=== PATIENT | female | born 1985 | race Caucasian/White ===

== ENCOUNTER 2022-12-17 18:14 | Inpatient (IN) | payer OTHER, SELFPAY ==
[2022-12-17] VITALS (26 sets, daily range): BP systolic 105–121; BP diastolic 66–74; PULSE 79–103; RESP 15–30; TEMP 36.9–37.6; O2SAT 96–100; BMI 28.4; BMI 29.0
--- NOTE | 2022-12-17 18:42 | ECG_ITS ---
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
--- NOTE | 2022-12-17 18:42 | XR_ITS ---
The [address] [address] Patient Name: MARIA E ORDOÑEZ MRN: [id number] date: 1985 Sex: F Assigned Patient Location: ER Current Patient Location: ER Accession/Order Number: [id number] Exam Date: 12/17/2022 19:20 Report Date: 12/17/2022 20:29 At the request of: EDWIGE RIVERA Procedure: XR chest 1V EXAM: XR chest 1V COMPARISON: None available. CLINICAL INDICATION: Cough. FINDINGS: The cardiomediastinal silhouette is within normal limits. No focal consolidation. No pleural effusion. No pneumothorax. XR/XR chest 1V IMPRESSION: No evidence of acute cardiopulmonary abnormality. Electronically authenticated by: ESTELLE GRANT Date: 12/17/2022 20:29
--- NOTE | 2022-12-17 18:45 | ED.GENADUL1 ---
HPI - General Adult General Chief complaint: Nausea/Vomiting/Diarrhea Stated complaint: FEVER, NAUSEA/VOMITING Time Seen by Provider: 12/17/22 18:35 Source: patient Mode of arrival: Wheelchair Limitations: no limitations History of Present Illness HPI narrative: Patient is a 37-year-old female who presents to the emergency department with her significant other for the evaluation of fever, nausea and vomiting for the last several days. She was seen in urgent care yesterday, no testing was performed and she was discharged home with Jessica. She states she continues to have generalized body aches, weakness, right heaving. She was able to hold down Tylenol at 4:33 PM today with no difficulty. She has been urinating normally. She is not concerned for . She has had nonproductive coughing with no other upper respiratory symptoms. Significant other reports temperatures as high as 100 and a half . She denies abdominal pain. She has chronic low back pain that is not worse or different. Related Data Home Medications Medication Instructions Recorded Confirmed lisinopril 10 mg tablet 10 mg PO DAILY 12/17/22 12/17/22 loperamide 2 mg capsule 2 mg PO DAILY 12/17/22 12/17/22 ondansetron 4 mg disintegrating 4 mg PO DAILY 12/17/22 12/17/22 tablet Allergies Allergy/AdvReac Type Severity Reaction Status Date / Time No Known Drug Allergies Allergy Verified 12/17/22 18:25 Review of Systems ROS Constitutional Reports: fever Ears, nose, mouth, and throat Denies: throat pain or neck pain Cardiovascular Denies: chest pain Respiratory Reports: cough; Denies: shortness of breath Gastrointestinal Reports: nausea and vomiting; Denies: abdominal pain or diarrhea Musculoskeletal Reports: back pain Integumentary/Breast Denies: rash Neurological Denies: headache [facility] Medical History (Updated 12/17/22 @ 22:22 by Rhina Stevens) Surgical History (Updated 12/17/22 @ 22:23 by Rhina Stevens) Social History (Updated 12/17/22 @ 22:27 by Rhina Stevens) Within the past year, how often did you have a drink containing alcohol: never Within the past year, how often did you have six or more drinks on one occasion: never Score interpretation: A score less than 3 is consistent with normal alcohol consumption. 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 Known occupational exposures/hazards: No Highest level of school completed/degree received: Bachelor's degree Do you want help with school or training: No Are you now , , , , never or living with a partner: In a typical week, how many times do you talk on the telephone with family, friends, or neighbors: 3 or more times per week How often do you get together with friends or relatives: 3 or more times per week How often do you attend presybeterian or lutheran services: 4 or more times per year Do you belong to any clubs or organizations such as presyb[employer]ian groups unions, [employer]lar[employer] or athletic groups, or school groups: yes Total score: 3 Score interpretation: A score of greater than or equal to 2 indicates the lowest level of social isolation. Little interest or pleasure in doing things: not at all Feeling down, depressed, or hopeless: not at all Feel stressed/tense/nervous/anxious/difficulty sleeping: not at all Life stressors: unknown source of stress Due to disability, difficulty making decisions: No Do you think of yourself as: straight/heterosexual Gender Identity: female Exam Narrative Exam Narrative: Gen.: Awake, alert, in no distress; patient appears well-hydrated and nontoxic Head: Normocephalic, atraumatic ENT: Moist mucous membranes Respiratory: No respiratory distress, lungs clear bilaterally Cardio: Regular rate and rhythm Gastrointestinal: Abdomen is soft, nondistended and nontender to palpation Extremities: Moves extremities equally Psych: Normal mood and affect Neuro: No focal neuro deficit Skin: Warm, dry, intact Constitutional Vital Signs, click to edit/add: Last Vital Signs Temp 101.2 F H 12/18/22 06:25 Pulse 115 H 12/18/22 06:00 Resp 20 12/18/22 04:14 BP 106/62 12/18/22 04:14 Pulse Ox 99 12/18/22 04:14 O2 Del Method Room Air 12/18/22 04:14 Course Vital Signs Vital signs: Vital Signs Temperature 98.4 F 12/17/22 18:18 Pulse Rate 103 H 12/17/22 18:18 Respiratory Rate 22 12/17/22 18:18 Blood Pressure 121/74 12/17/22 18:18 Pulse Oximetry 100 12/17/22 18:18 Oxygen Delivery Method Room Air 12/17/22 18:18 Temperature 101.2 F H 12/18/22 06:25 Pulse Rate 115 H 12/18/22 06:00 Respiratory Rate 20 12/18/22 04:14 Blood Pressure 106/62 12/18/22 04:14 Pulse Oximetry 99 12/18/22 04:14 Oxygen Delivery Method Room Air 12/18/22 04:14 Medical Decision Making MDM Narrative Medical decision making narrative: Patient treated with IV fluids, Toradol, Phenergan. She had no persistent emesis in the Emergency Room but feels generally weak and not significantly improved. She was found to have hyponatremia and hypokalemia and was able to tolerate oral potassium chloride. Chest x-ray with no evidence of acute abnormalities, strep and Covid test are negative. She does have leukocytosis, no bandemia but does have a urinary tract infection and stranding on the left kidney on her CT scan consistent with pyelonephritis. Patient will be kept overnight for IV antibiotics and fluids. She was given IV Cipro in the Emergency Room. Blood cultures are pending as the patient meet sepsis criteria due to white blood cell count, source of infection and initial tachycardia. Vital signs have improved at this time. She does still have tachypnea at time of admission. She was reevaluated prior to admission and is agreeable to being admitted overnight, stable at this time. Discussed with Dr. Zhu ([id number]) for admission Medical Records Medical records reviewed: Yes I reviewed the patient's medical records Lab Data Lab results reviewed: Yes I reviewed the patient's lab results Labs: Lab Results 12/17/22 12/17/22 12/17/22 Range/Units 18:30 19:10 20:11 WBC 21.9 H (4.0-11.0) 10^3/uL RBC 4.41 (4.20-5.40) 10^6/uL Hgb 12.2 (12.0-16.0) g/dL Hct 36.8 (36.0-48.0) % MCV 83.4 (81.0-99.0) fL MCH 27.7 (26.7-34.0) pg MCHC 33.2 (29.9-35.2) g/dL RDW 13.2 (11.0-15.0) % Plt Count 364 (150-450) 10^3/uL MPV 9.9 (9.5-13.5) fL Seg Neuts % (Manual) 84.0 Lymphocytes % (Manual) 5.0 L (20.5-60.0) % Atypical Lymphs % (Man) 1.0 % Monocytes % (Manual) 10.0 (1.7-12.0) % Eosinophils % (Manual) 0.0 L (0.9-7.0) % Basophils % (Manual) 0.0 L (0.2-2.0) % Neutrophils # (Manual) 18.39 H (1.4-6.5) 10^3/uL Lymphocytes # (Manual) 1.09 L (1.20-3.80) 10^3/uL Abs Atypical Lymphs Man 0.2 Monocytes # (Manual) 2.19 H (0.30-0.80) 10^3/uL Eosinophils # (Manual) 0.00 (0.00-0.70) 10^3/uL Basophils # (Manual) 0.00 (0.00-0.10) 10^3/uL Sodium 130 L (136-145) mmol/L Potassium 3.0 L (3.5-5.1) mmol/L Chloride 94 L (98-107) mmol/L Carbon Dioxide 21.2 (21.0-32.0) mmol/L Anion Gap 17.8 BUN 12.0 (7.0-18.0) mg/dL Creatinine 1.50 H (0.55-1.02) mg/dL Est GFR ( Amer) 48 L (>=60) Est GFR (Non-Af Amer) 40 L (>=60) BUN/Creatinine Ratio 8.0 Glucose 147 H (74-106) mg/dL Lactate 1.9 (0.4-2.0) mmol/L Calcium 8.6 (8.5-10.1) mg/dL Total Bilirubin 0.8 (0.2-1.0) mg/dL AST 15 (15-37) U/L ALT 26 (14-59) U/L Alkaline Phosphatase 81 (46-116) U/L Total Protein 7.8 (6.4-8.2) g/dL Albumin 3.2 L (3.4-5.0) g/dL Globulin 4.6 g/dL Albumin/Globulin Ratio 0.7 Serum HCG, Qual Negative (NEGATIVE) Urine Color Lt. yellow (YELLOW) Urine Clarity Clear (CLEAR) Urine pH 5.5 (5.0-9.0) Ur Specific [place] 1.015 (1.005-1.025) Urine Protein 30 A (NEG/TRACE) mg/dL Urine Glucose (UA) Negative (NEGATIVE) mg/dL Urine Ketones Negative (NEGATIVE) mg/dL Urine Occult Blood Moderate A (NEGATIVE) Urine Nitrite Negative (NEGATIVE) Urine Bilirubin Negative (NEGATIVE) Urine Urobilinogen 1.0 (0.2-1.0) EU/dL Ur Leukocyte Esterase Moderate A (NEGATIVE) Urine RBC 5-10 A (0-2) #/HPF Urine WBC 10-20 A (NONE SEEN) #/HPF Ur Squamous Epith Cells Few A (NONE/RARE) #/LPF Urine Crystals None seen (None Seen) #/HPF Urine Bacteria Large A (NONE SEEN) #/HPF Urine Casts None seen (NONE SEEN) #/LPF Urine Mucus None seen (NONE SEEN) Ur Culture Indicated? Yes SARS-CoV-2 (PCR) Negative (NEGATIVE) Streptococcus Screen Negative Imaging Data CT scan - abdomen: Attestation: I have reviewed the pertinent imaging results. Radiologist's impression: Procedure: CT abdomen pelvis wo con EXAM: CT abdomen pelvis wo con Comparison: None available. CLINICAL INDICATION: Fever, nausea and vomiting, concern for kidney stone. TECHNIQUE: Axial images through the abdomen and pelvis were obtained without intravenous contrast. Coronal and sagittal reconstructions were obtained. Dose reduction techniques were achieved by using automated exposure control and/or adjustment of mA and/or kV according to patient size and/or use of iterative reconstruction technique. FINDINGS: Please note that evaluation of the viscera/vascular structures, and sensitivity for detection of focal lesions, is limited without intravenous contrast. LOWER CHEST: The visualized portions of the lung bases are clear. LIVER: Hepatic steatosis. Liver measures up to 19 cm. GALLBLADDER: Unremarkable. BILE DUCTS: Unremarkable. PANCREAS: Unremarkable. SPLEEN: Unremarkable. ADRENALS: Unremarkable. 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 No ureteral stones seen at this time. There is mild left hydroureteronephrosis, as well as left perinephric-periureteral stranding, raising suspicion for a recently passed left kidney stone or pyelonephritis on the left. BLADDER: No bladder stones seen at this time. No bladder wall thickening. PELVIC STRUCTURES: Uterus is present. Bilateral tubal ligation clips. No adnexal mass or significant pelvic free fluid. GI TRACT: Evaluation of bowel limited by fecal contents and lack of distention. No evidence of bowel obstruction. Normal appendix. VASCULAR STRUCTURES: Unremarkable. LYMPH NODES: No pathologic lymphadenopathy by CT size criteria. PERITONEUM: No free air. No abscess. SOFT TISSUES: Unremarkable. OSSEOUS STRUCTURES: No acute osseous abnormality. No suspicious osseous lesions. 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 No ureteral stones seen at this time. There is mild left hydroureteronephrosis, as well as left perinephric-periureteral stranding, raising suspicion for a recently passed left kidney stone or pyelonephritis on the left. Electronically authenticated by: ESTELLE GRANT Date: 12/17/2022 20:34 Chest x-ray: Attestation: I have reviewed the pertinent imaging results. Radiologist's impression: Procedure: XR chest 1V EXAM: XR chest 1V COMPARISON: None available. CLINICAL INDICATION: Cough. FINDINGS: The cardiomediastinal silhouette is within normal limits. No focal consolidation. No pleural effusion. No pneumothorax. IMPRESSION: No evidence of acute cardiopulmonary abnormality. Electronically authenticated by: ESTELLE GRANT Date: 12/17/2022 20:29 ECG Data Attestation: I personally reviewed and interpreted this ECG as follows: (Normal sinus rhythm at a rate of ninety-eight, no acute ST elevation or ectopy. Minimal ST depression noted. EKG reviewed by attending physician) Discharge Plan Discharge Chief Complaint: Nausea/Vomiting/Diarrhea Clinical Impression: Pyelonephritis, Sepsis, Nausea & vomiting Patient Disposition: Admitted as Observation Time of Disposition Decision: 20:45 Condition: Good Discharge Date/Time: 12/17/22 21:37
[2022-12-17 18:57] LABS: Hematocrit 36.8 % (36.0-48.0); Hemoglobin 12.2 g/dL (12.0-16.0); Mean Corpuscular HGB Conc 33.2 g/dL (29.9-35.2); Mean Corpuscular Hemoglobin 27.7 pg (26.7-34.0); Mean Corpuscular Volume 83.4 fL (81.0-99.0); Mean Platelet Volume 9.9 fL (9.5-13.5); Platelet Count 364 10^3/uL (150-450); Red Blood Count 4.41 10^6/uL (4.20-5.40); Red Cell Distribution Width 13.2 % (11.0-15.0); White Blood Count 21.9 10^3/uL (4.0-11.0)
[2022-12-17] MEDS: KETOROLAC TROMETHAMINE 30 MG/ML VIAL IVP (18:57)
[2022-12-17] MEDS: PROMETHAZINE HCL 25 MG/ML VIAL 12.5 MG IV (18:57)
[2022-12-17] MEDS: 0.9 % SODIUM CHLORIDE 1,000 ML 999 ML IV (18:58)
[2022-12-17] MEDS: FAMOTIDINE/PF 20 MG/2 ML VIAL IV (18:58)
--- NOTE | 2022-12-17 19:02 | CT_ITS ---
The [address] [address] Patient Name: MARIA E ORDOÑEZ MRN: [id number] date: 1985 Sex: F Assigned Patient Location: ER Current Patient Location: Accession/Order Number: [id number] Exam Date: 12/17/2022 19:35 Report Date: 12/17/2022 20:34 At the request of: EDWIGE RIVERA Procedure: CT abdomen pelvis wo con EXAM: CT abdomen pelvis wo con Comparison: None available. CLINICAL INDICATION: Fever, nausea and vomiting, concern for kidney stone. TECHNIQUE: Axial images through the abdomen and pelvis were obtained without intravenous contrast. Coronal and sagittal reconstructions were obtained. Dose reduction techniques were achieved by using automated exposure control and/or adjustment of mA and/or kV according to patient size and/or use of iterative reconstruction technique. FINDINGS: Please note that evaluation of the viscera/vascular structures, and sensitivity for detection of focal lesions, is limited without intravenous contrast. LOWER CHEST: The visualized portions of the lung bases are clear. LIVER: Hepatic steatosis. Liver measures up to 19 cm. GALLBLADDER: Unremarkable. BILE DUCTS: Unremarkable. PANCREAS: Unremarkable. SPLEEN: Unremarkable. ADRENALS: Unremarkable. 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 No ureteral stones seen at this time. There is mild left hydroureteronephrosis, as well as left perinephric-periureteral stranding, raising suspicion for a recently passed left kidney stone or pyelonephritis on the left. BLADDER: No bladder stones seen at this time. No bladder wall thickening. PELVIC STRUCTURES: Uterus is present. Bilateral tubal ligation clips. No adnexal mass or significant pelvic free fluid. GI TRACT: Evaluation of bowel limited by fecal contents and lack of distention. No evidence of bowel obstruction. Normal appendix. VASCULAR STRUCTURES: Unremarkable. LYMPH NODES: No pathologic lymphadenopathy by CT size criteria. PERITONEUM: No free air. No abscess. SOFT TISSUES: Unremarkable. OSSEOUS STRUCTURES: No acute osseous abnormality. No suspicious osseous lesions. 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 No ureteral stones seen at this time. There is mild left hydroureteronephrosis, as well as left perinephric-periureteral stranding, raising suspicion for a recently passed left kidney stone or pyelonephritis on the left. Electronically authenticated by: ESTELLE GRANT Date: 12/17/2022 20:34
[2022-12-17 19:10] LABS: HCG Qualitative NEGATIVE (NEGATIVE)
--- NOTE | 2022-12-17 19:14 | PC.NURSE ---
covid swab and strept swab obtained at this time. pt denies any other needs,.
[2022-12-17 19:17] LABS: Atypical Lymphocytes Abs Man 0.2; Lactate/Lactic Acid 1.9 mmol/L (0.4-2.0); Lymphocytes Absolute Manual 1.09 10^3/uL (1.20-3.80); Monocytes Absolute Manual 2.19 10^3/uL (0.30-0.80); Segmented Neut Absolute Manual 18.39 10^3/uL (1.4-6.5)
[2022-12-17 19:24] LABS: Alanine Aminotransferase 26 U/L (14-59); Albumin Globulin Ratio 0.7; Albumin Level 3.2 g/dL (3.4-5.0); Alkaline Phosphatase 81 U/L (46-116); Anion Gap 17.8; Aspartate Amino Transferase 15 U/L (15-37); Bilirubin Total 0.8 mg/dL (0.2-1.0); Calcium 8.6 mg/dL (8.5-10.1); Carbon Dioxide 21.2 mmol/L (21.0-32.0); Chloride 94 mmol/L (98-107); Estimated GFR (African America 48 (>=60); Estimated GFR (Non-African Ame 40 (>=60); Globulin 4.6 g/dL; Glucose 147 mg/dL (74-106); Sodium 130 mmol/L (136-145); Total Protein 7.8 g/dL (6.4-8.2)
[2022-12-17 19:45] LABS: Internal Control Within Normal Limits; Strep A Antigen Screen Negative
[2022-12-17 19:47] LABS: SARS-CoV-2 Ag NEGATIVE (NEGATIVE)
[2022-12-17] MEDS: POTASSIUM CHLORIDE 10 MEQ ER TABLET 40 MEQ PO (20:05)
[2022-12-17 20:18] LABS: Bilirubin Urine NEGATIVE (NEGATIVE); Blood Urine MODERATE (NEGATIVE); Clarity Urine CLEAR (CLEAR); Color Urine LT. YELLOW (YELLOW); Glucose Urine UA NEGATIVE (NEGATIVE); Ketones Urine NEGATIVE (NEGATIVE); Leukocyte Esterase Urine MODERATE (NEGATIVE); Nitrite Urine NEGATIVE (NEGATIVE); Protein Urine 30 mg/dL (NEG/TRACE); Specific Gravity Urine 1.015 (1.005-1.025); pH Urine 5.5 (5.0-9.0)
[2022-12-17 20:19] LABS: Urine Microscopic Indicated YES
[2022-12-17 20:25] LABS: Bacteria Urine LARGE #/HPF (NONE SEEN); Mucus Urine NONE SEEN (NONE SEEN)
[2022-12-17 20:26] LABS: Cast Seen? NONE SEEN #/LPF (NONE SEEN); Crystals Seen? None Seen #/HPF (None Seen); Squamous Epithelial Cell Urine FEW #/LPF (NONE/RARE); Urine Culture Indicated YES
[2022-12-17] MEDS: LEVOFLOXACIN IN DEXTROSE 5 % 750 MG/150 ML IV.SOLN 150 MG IV (21:00)
--- NOTE | 2022-12-17 23:15 | P.PN_ITS ---
Progress Note: Subjective Subjective Interval history: Pt is a 37F with PMH of Nephrolithiasis, Pyelonephritis, HTN who presents to the ED with complaint of 3--4 days of nausea/vomiting, Fever of 101 at home, Back pain L>R - 7/10 in severity, sharp, nonradiating, constant. Relieved with heating pad and hot shower, exacerbated with movement and plapation. She was evaluated in the urgent care yesterday and was provided with Zofran SL but she continued to vomit and have fevers. She took tyelnol prior to arrival. In the ED, she was noted to be tachycardic with a WBC count of 22. She was found to have a positive UA and CT Ab/Pel showed perinephric stranding. She received LEvaquin, IV Fluid, Toradol and Phenergan in the ED. IM is consulted for admission of pyelonephiritis. At the time of my exam, pt continues to complain of nausea, vomiting, and back pain. Exam Narrative Exam Narrative: General: Pt lying in hospital bed. Nurse at bedside. Pt appears well whilst lying still, and in moderate pain with movement HEENT: No nasal discharge. PEERL Neck: FROM Cardio: +Tachycardia, no murmur Pulm: CTA B/L . No wheezes Abd: Hyperactive bowel sounds, nondistneded, nontender Musculoskeletal: No edema. +L CVA tenderness Neuro: AAOx 4 Psych: Calm, cooperative Constitutional Vital Signs, click to edit/add: Last Vital Signs Temp 99.3 F 12/17/22 22:15 Pulse 81 12/17/22 22:15 Resp 24 12/17/22 22:15 BP 105/74 12/17/22 22:15 Pulse Ox 99 12/17/22 22:15 O2 Del Method Room Air 12/17/22 22:15 Progress Note: Objective Labs Labs: Short CBC 12/17/22 Range/Units 18:30 WBC 21.9 H (4.0-11.0) 10^3/uL Hgb 12.2 (12.0-16.0) g/dL Hct 36.8 (36.0-48.0) % Plt Count 364 (150-450) 10^3/uL BMP 12/17/22 18:30 Sodium 130 L Potassium 3.0 L Chloride 94 L Carbon Dioxide 21.2 BUN 12.0 Creatinine 1.50 H Glucose 147 H Calcium 8.6 Liver Function 12/17/22 Range/Units 18:30 Total Bilirubin 0.8 (0.2-1.0) mg/dL AST 15 (15-37) U/L ALT 26 (14-59) U/L Alkaline Phosphatase 81 (46-116) U/L Albumin 3.2 L (3.4-5.0) g/dL Urine 12/17/22 Range/Units 20:11 Urine Color Lt. yellow (YELLOW) Urine Clarity Clear (CLEAR) Urine pH 5.5 (5.0-9.0) Ur Specific [place] 1.015 (1.005-1.025) Urine Protein 30 A (NEG/TRACE) mg/dL Urine Glucose (UA) Negative (NEGATIVE) mg/dL Progress Note: A&P Assessment and Plan (1) Sepsis: Assessment and Plan: Tachycardia, WBC 22, suspected source pyelonephritis Pt received IV FLuid and Levaquin in the ED Continue IV NS at 150cc/hr Rocephin 2g Q24h Follow up urine and blood cultures (2) Pyelonephritis: Assessment and Plan: Pt with L CVA tenderness UA positive Hx of Pyelo, stones No obstructing stones seen on CT Follow up urine culture, blood cultures Continue IVF and Abx as above Monitor response (3) Nausea & vomiting: Assessment and Plan: Pt has received Zofran and Phenergan with no improvement Add ativan 1mg PRN nausea Monitor response Plan As above Telemedicine Attestation Telemedicine Attestation I conducted this encounter from [[place]] via secure live, [id number] video conference with the patient, located at [facility] with [nurse]. Prior to the interview, the risks and benefits of telemedicine were discussed with the patient and verbal consent was obtained.
[2022-12-17] MEDS: HEPARIN SODIUM (PORCINE) 5,000 UNIT/ML VIAL 5000 UNIT SUBQ (23:54)
[2022-12-17] MEDS: LORAZEPAM 2 MG/ML 1 ML VIAL 1 MG IV (23:55)
[2022-12-17] MEDS: 0.9 % SODIUM CHLORIDE 1,000 ML 150 ML IV (23:55)
[2022-12-18] VITALS (18 sets, daily range): BP systolic 100–106; BP diastolic 62–69; PULSE 81–122; RESP 16–20; TEMP 36.9–38.4; O2SAT 95–99; BMI 29.0
--- NOTE | 2022-12-18 01:43 | PC.NURSE ---
patient's stool liquid light green
[2022-12-18 04:55] LABS: Basophils Absolute Auto 0.1 10^3/uL (0.0-0.1); Basophils Percent Auto 0.3 % (0.2-2.0); Eosinophils Percent Auto 0.1 % (0.9-7.0); Hematocrit 37.5 % (36.0-48.0); Hemoglobin 12.3 g/dL (12.0-16.0); Immature Granulocytes Abs Auto 0.13 10^3/uL (0.00-0.03); Immature Granulocytes Pct Auto 0.7 % (0.0-0.5); Lymphocytes Absolute Auto 2.1 10^3/uL (1.2-3.8); Lymphocytes Percent Auto 11.6 % (20.5-60.0); Mean Corpuscular HGB Conc 32.8 g/dL (29.9-35.2); Mean Corpuscular Volume 85.2 fL (81.0-99.0); Mean Platelet Volume 10.6 fL (9.5-13.5); Monocytes Absolute Auto 2.1 10^3/uL (0.3-0.8); Monocytes Percent Auto 11.4 % (1.7-12.0); Neutrophils Percent Auto 75.9 % (43.0-75.0); Platelet Count 326 10^3/uL (150-450); Red Cell Distribution Width 13.4 % (11.0-15.0); White Blood Count 18.4 10^3/uL (4.0-11.0)
[2022-12-18 05:14] LABS: Anion Gap 16.1; BUN Creatinine Ratio 9.9; Calcium 8.2 mg/dL (8.5-10.1); Carbon Dioxide 21.7 mmol/L (21.0-32.0); Chloride 96 mmol/L (98-107); Estimated GFR (African America 51 (>=60); Estimated GFR (Non-African Ame 42 (>=60); Glucose 94 mg/dL (74-106); Magnesium 1.8 mg/dL (1.8-2.4); Potassium 3.8 mmol/L (3.5-5.1); Sodium 130 mmol/L (136-145)
[2022-12-18] MEDS: 0.9 % SODIUM CHLORIDE 1,000 ML 150 ML IV (05:35)
[2022-12-18] MEDS: CEFTRIAXONE 2,000 MG in 0.9 % SODIUM CHLORIDE 100 ML 200 MG IV (08:22)
--- NOTE | 2022-12-18 10:44 | DIETREC ---
Recommend Ensure high protein 1 container po daily
--- NOTE | 2022-12-18 10:48 | CM.NOTE ---
Rounds made with Dr. Fernández, pt continues with fevers. No discharge to home today. No discharge needs identified with pt.
--- NOTE | 2022-12-18 12:04 | PM.HP ---
H&P: HPI History of Present Illness Chief complaint: Fever/nausea Narrative: 37 y o female with hx of recurrent kidney stones in the past, was in her usual state of health on past Friday when she suddenly started to experience intense nausea, followed by intractable vomiting with inability to keep anything down along with anorexia. She also reports tmax 102 at home and reports chills and profuse sweating with fever. She denies dysuria, urgency, hesitancy or any urinary complaints. She experienced diarrhea 2-3 episodes of day 1 of when he symptoms started. She also reports feeling malaise, fatigue and generalized bodyaches. She denies abdominal pain, CVA tenderness, passing kidney stones. Pt was evaluated in urgent care on Friday and was told that she probably has gastroenteritis and it will get better in sometime on its own with supportive care. However, when she continued to experience worsening symptoms, recurrent fever, she came to ED last night for further evaluation. Patient's ED is c/w Severe sepsis sec to Pyelonephritis. This morning on my evaluation, she reports feeling much better than last night. Still febrile and reports feeling weak, tired with mild nausea. Denies diarrhea and vomiting and was able to tolerate PO intake. Review of Systems ROS Status of ROS 10 or more systems reviewed and unremarkable except as noted in history and below [facility] Medical History (Updated 12/18/22 @ 12:17 by Shaikh Jolene MD) Surgical History (Updated 12/17/22 @ 22:23 by Rhina Stevens) Social History (Updated 12/17/22 @ 22:27 by Rhina Stevens) Within the past year, how often did you have a drink containing alcohol: never Within the past year, how often did you have six or more drinks on one occasion: never Score interpretation: A score less than 3 is consistent with normal alcohol consumption. 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 Known occupational exposures/hazards: No Highest level of school completed/degree received: Bachelor's degree Do you want help with school or training: No Are you now , , , , never or living with a partner: In a typical week, how many times do you talk on the telephone with family, friends, or neighbors: 3 or more times per week How often do you get together with friends or relatives: 3 or more times per week How often do you attend worship or confucianist services: 4 or more times per year Do you belong to any clubs or organizations such as worship groups unions, fraternal or athletic groups, or school groups: yes Total score: 3 Score interpretation: A score of greater than or equal to 2 indicates the lowest level of social isolation. Little interest or pleasure in doing things: not at all Feeling down, depressed, or hopeless: not at all Feel stressed/tense/nervous/anxious/difficulty sleeping: not at all Life stressors: unknown source of stress Due to disability, difficulty making decisions: No Do you think of yourself as: straight/heterosexual Gender Identity: female Meds Home Medications and Allergies Home Medications Medication Instructions Recorded Confirmed Type lisinopril 10 mg tablet 10 mg PO DAILY 12/17/22 12/17/22 History loperamide 2 mg capsule 2 mg PO DAILY 12/17/22 12/18/22 History ondansetron 4 mg disintegrating 4 mg PO DAILY 12/17/22 12/18/22 History tablet Allergies Allergy/AdvReac Type Severity Reaction Status Date / Time No Known Drug Allergies Allergy Verified 12/17/22 18:25 Exam Constitutional Vital Signs, click to edit/add: Last Vital Signs Temp 101.2 F H 12/18/22 06:25 Pulse 87 12/18/22 11:51 Resp 20 12/18/22 04:14 BP 106/62 12/18/22 04:14 Pulse Ox 98 12/18/22 11:07 O2 Del Method Room Air 12/18/22 11:07 Documenting provider has reviewed patient's vital signs: yes Common normals: no apparent distress and oriented x3 General appearance: cooperative and comfortable [facility] Common normals: normocephalic and head/scalp atraumatic Head and scalp: normocephalic and atraumatic Eye Common normals: conjunctivae normal and no scleral icterus Conjunctiva: conjunctiva(e) normal Respiratory Common normals: normal respiratory effort and clear to auscultation bilaterally Effort & inspection: able to speak in complete sentences Auscultation: clear to auscultation bilaterally Cardio Common normals: regular rate, S1 normal heart sound and S2 normal heart sound Rate: regular rate Heart sounds: S1 normal and S2 normal GI Common normals: Normal to inspection, nondistended, normoactive bowel sounds present, soft to palpation, non-tender and no hepatosplenomegaly Palpation: soft and no hepatosplenomegaly Extremity Common normals: no clubbing, cyanosis or edema Neuro Common normals: oriented x3, moves all extremities and no focal motor deficits Psych Common normals: mental status grossly normal, denies hallucinations, denies homicidal ideation and denies suicidal ideation Results Labs Labs: Short CBC 12/17/22 12/18/22 Range/Units 18:30 04:12 WBC 21.9 H 18.4 H (4.0-11.0) 10^3/uL Hgb 12.2 12.3 (12.0-16.0) g/dL Hct 36.8 37.5 (36.0-48.0) % Plt Count 364 326 (150-450) 10^3/uL BMP 12/17/22 12/18/22 18:30 04:12 Sodium 130 L 130 L Potassium 3.0 L 3.8 Chloride 94 L 96 L Carbon Dioxide 21.2 21.7 BUN 12.0 14.0 Creatinine 1.50 H 1.41 H Glucose 147 H 94 Calcium 8.6 8.2 L Liver Function 12/17/22 Range/Units 18:30 Total Bilirubin 0.8 (0.2-1.0) mg/dL AST 15 (15-37) U/L ALT 26 (14-59) U/L Alkaline Phosphatase 81 (46-116) U/L Albumin 3.2 L (3.4-5.0) g/dL Urine 12/17/22 Range/Units 20:11 Urine Color Lt. yellow (YELLOW) Urine Clarity Clear (CLEAR) Urine pH 5.5 (5.0-9.0) Ur Specific [place] 1.015 (1.005-1.025) Urine Protein 30 A (NEG/TRACE) mg/dL Urine Glucose (UA) Negative (NEGATIVE) mg/dL Assessment and Plan Assessment and Plan (1) Sepsis: Assessment and Plan: WBC > 21k, temp 102 with KOFI Meets criteria for sepsis. Improved hemodynamics. C/w IVF - reduce rate to 100 ml/hr IV rocephin for UTI. F/u blood and urine cx. Closely monitor, as still febrile. Qualifiers: Sepsis type: sepsis due to unspecified organism Sepsis acute organ dysfunction status: with acute organ dysfunction Severe sepsis acute organ dysfunction type: acute renal failure Acute renal failure type: unspecified (2) HTN (hypertension): Assessment and Plan: Hold lisinopril as p/w sepsis and KOFI Resume once KOFI resolves Monitor BP closely. (3) Pyelonephritis of left kidney: Assessment and Plan: Due to and associated with renal/ureteral calculi Suspect recently passed ureteral stone that resulted/caused pyelonephritis and mild hydroureteronephrosis. C/w IV rocephin, f/u urine and blood cx. (4) Hydroureteronephrosis: Assessment and Plan: Left sided, mild, no ureteral stone visualized on CT. Likely passed it recently. Monitor. (5) KOFI (acute kidney injury): Assessment and Plan: Combination of pre renal and possibly obstructive uropathy due to ureteral stone (now passed with no obs noted on CT) Normal baseline Cr C/w IV hydration, monitor UO, Cr Hold lisinopril/NSAIDS. (6) Hyponatremia: Assessment and Plan: Likely due to dehydration/sepsis. Follow up and monitor. Sodium of 130 on presentation (7) Multiple renal calculi: Assessment and Plan: Multiple stones in renal parenchyma. No evidence of current ureteral stones or obstruction Plan Meets inpatient status due to severe sepsis, pyelonephritis, organ dysfunction and needs continued monitoring/IV abx and IV fluids for Pyelonephritis/KOFI
[2022-12-18] MEDS: LACTATED RINGER'S SOLUTION 1,000 ML 125 ML IV ×2 (12:26→20:56)
--- NOTE | 2022-12-18 13:05 | NUTR.NU ---
Provided nutrition information: [facility]: to prevent kidney stones & NIH Eating; Diet Nutrition for kidney stones
[2022-12-18] MEDS: ENOXAPARIN SODIUM 30 MG/0.3 ML SYRINGE SUBQ (14:00)
[2022-12-18] MEDS: ACETAMINOPHEN 325 MG TABLET 650 MG PO (17:02)
[2022-12-19] VITALS (9 sets, daily range): BP systolic 113; BP diastolic 74; PULSE 89–110; RESP 16; TEMP 37.2; O2SAT 95–96
[2022-12-19 04:45] LABS: Basophils Percent Auto 0.4 % (0.2-2.0); Eosinophils Absolute Auto 0.1 10^3/uL (0.0-0.7); Eosinophils Percent Auto 0.5 % (0.9-7.0); Hematocrit 30.4 % (36.0-48.0); Hemoglobin 10.1 g/dL (12.0-16.0); Immature Granulocytes Abs Auto 0.07 10^3/uL (0.00-0.03); Immature Granulocytes Pct Auto 0.6 % (0.0-0.5); Lymphocytes Absolute Auto 2.1 10^3/uL (1.2-3.8); Lymphocytes Percent Auto 18.7 % (20.5-60.0); Mean Corpuscular HGB Conc 33.2 g/dL (29.9-35.2); Mean Corpuscular Volume 84.2 fL (81.0-99.0); Mean Platelet Volume 10.2 fL (9.5-13.5); Monocytes Absolute Auto 1.3 10^3/uL (0.3-0.8); Monocytes Percent Auto 11.6 % (1.7-12.0); Neutrophils Absolute Auto 7.7 10^3/uL (1.4-6.5); Neutrophils Percent Auto 68.2 % (43.0-75.0); Platelet Count 366 10^3/uL (150-450); Red Blood Count 3.61 10^6/uL (4.20-5.40); Red Cell Distribution Width 13.8 % (11.0-15.0); White Blood Count 11.3 10^3/uL (4.0-11.0)
[2022-12-19] MEDS: LACTATED RINGER'S SOLUTION 1,000 ML 125 ML IV (04:59)
[2022-12-19 05:02] LABS: Alanine Aminotransferase 20 U/L (14-59); Albumin Globulin Ratio 0.5; Albumin Level 2.2 g/dL (3.4-5.0); Alkaline Phosphatase 64 U/L (46-116); Aspartate Amino Transferase 12 U/L (15-37); BUN Creatinine Ratio 6.4; Bilirubin Total 0.3 mg/dL (0.2-1.0); Carbon Dioxide 23.6 mmol/L (21.0-32.0); Chloride 105 mmol/L (98-107); Estimated GFR (African America >60 (>=60); Estimated GFR (Non-African Ame >60 (>=60); Globulin 4.3 g/dL; Glucose 103 mg/dL (74-106); Potassium 3.6 mmol/L (3.5-5.1); Sodium 138 mmol/L (136-145); Total Protein 6.5 g/dL (6.4-8.2)
[2022-12-19] MEDS: CEFTRIAXONE 1,000 MG in 0.9 % SODIUM CHLORIDE 50 ML 100 MG IV (08:22)
--- NOTE | 2022-12-19 11:13 | CM.NOTE ---
Rounds made with giovanni Harrison for discharge to home today. No discharge needs identified.
--- NOTE | 2022-12-19 11:29 | PM.DS1 ---
DS: Providers Provider Date of admission: 12/17/22 23:25 Primary care physician: Non-Staff Physician, Attending physician on discharge: Shaikh Jolene Discharging clinician: Shaikh Jolene Anticipated date of discharge: 12/19/22 DS: Diagnosis Discharge Diagnosis (1) Sepsis: Assessment and plan: Resolved. Due to pyelonephritis Qualifiers: Acute renal failure type: unspecified Sepsis acute organ dysfunction status: with acute organ dysfunction Sepsis type: sepsis due to unspecified organism Severe sepsis acute organ dysfunction type: acute renal failure (2) HTN (hypertension): Assessment and plan: Resume Lisinopril as outpatient. (3) Pyelonephritis of left kidney: Assessment and plan: Left sided pyelonephritis - will d/c on oral ceftin (4) Hydroureteronephrosis: Assessment and plan: Only mild case. Likely from recently passed stone (5) KOFI (acute kidney injury): Assessment and plan: Resolved. due to sepsis and dehydration (6) Hyponatremia: Assessment and plan: due to dehydration, resolved. (7) Multiple renal calculi: Assessment and plan: in renal parenchyma with no evidence of obs on CT. DS: Summary Hospital Course Hospital Course: 7 y o female with hx of recurrent kidney stones in the past presented with intractable nausea, vomiting and was admitted for sepsis sec to left pyelonephritis. She was treated with IV fluids along with Rocephin for it. She continued to improve clinically and is doing well today with no complaints to offer. Patient stable for d/c on oral Ceftin Educated on worrisome signs and symptoms that should prompt her to seek urgent care. Status at Discharge Functional status at discharge: independent ambulation Overall status at discharge: patient is back to baseline Time Spent with Patient Time attestation: Total time spent providing and/or coordinating discharge services: Time spent: greater than 30 minutes Exam Constitutional Vital Signs, click to edit/add: Last Vital Signs Temp 99.0 F 12/19/22 04:11 Pulse 89 12/19/22 09:47 Resp 16 12/19/22 04:11 BP 113/74 12/19/22 04:11 Pulse Ox 95 12/19/22 08:13 O2 Del Method Room Air 12/19/22 08:13 Documenting provider has reviewed patient's vital signs: yes Common normals: no apparent distress and oriented x3 General appearance: cooperative and comfortable [facility] Common normals: normocephalic and head/scalp atraumatic Head and scalp: normocephalic and atraumatic Eye Common normals: conjunctivae normal and no scleral icterus Conjunctiva: conjunctiva(e) normal Respiratory Common normals: normal respiratory effort and clear to auscultation bilaterally Effort & inspection: able to speak in complete sentences Auscultation: clear to auscultation bilaterally Cardio Common normals: regular rate, S1 normal heart sound and S2 normal heart sound Rate: regular rate Heart sounds: S1 normal and S2 normal GI Common normals: Normal to inspection, nondistended, normoactive bowel sounds present, soft to palpation, non-tender and no hepatosplenomegaly Palpation: soft and no hepatosplenomegaly Extremity Common normals: no clubbing, cyanosis or edema Neuro Common normals: oriented x3, moves all extremities and no focal motor deficits Psych Common normals: mental status grossly normal, denies hallucinations, denies homicidal ideation and denies suicidal ideation DS: Data Data Completed and Pending Labs on day of discharge: Labs from last 24 hours 12/19/22 04:11 WBC 11.3 H RBC 3.61 L Hgb 10.1 L Hct 30.4 L MCV 84.2 MCH 28.0 MCHC 33.2 RDW 13.8 Plt Count 366 MPV 10.2 Neut % (Auto) 68.2 Lymph % (Auto) 18.7 L [place] % (Auto) 11.6 Eos % (Auto) 0.5 L Baso % (Auto) 0.4 Neut # (Auto) 7.7 H Lymph # (Auto) 2.1 [place] # (Auto) 1.3 H Eos # (Auto) 0.1 Baso # (Auto) 0.0 Abs Immat Gran (auto) 0.07 H Imm/Tot Granulo (auto) 0.6 H Sodium 138 Potassium 3.6 Chloride 105 Carbon Dioxide 23.6 Anion Gap 13.0 BUN 6.0 L Creatinine 0.94 Est GFR ( Amer) >60 Est GFR (Non-Af Amer) >60 BUN/Creatinine Ratio 6.4 Glucose 103 Calcium 8.0 L Total Bilirubin 0.3 AST 12 L ALT 20 Alkaline Phosphatase 64 Total Protein 6.5 Albumin 2.2 L Globulin 4.3 Albumin/Globulin Ratio 0.5 Discharge Plan Discharge Disposition: Home, Self-Care Condition: Good Discharge Medications: New cefuroxime axetil 500 mg tablet 500 mg PO BID 7 Days Qty: 14 0RF Continued lisinopril 10 mg tablet 10 mg PO DAILY loperamide 2 mg capsule 2 mg PO DAILY ondansetron 4 mg tablet,disintegrating 4 mg PO DAILY Activity: resume usual activities as tolerated Diet: advance to your usual diet Patient Instructions: Kidney Stones (DC), Kidney Infection (DC) Forms: Portal Instructions Follow Up Appointments: Dr Clark Szymanski [phone] January 01 at 6:30pm
[2022-12-19 15:15] LABS: SARS-CoV-2 NAA INVALID (NOT DETECTE)
--- NOTE | 2022-12-23 14:14 | CM.DCFOLLOWU ---
Person spoke with:patient How are you feeling? well How is your pain? no pain Did you understand your discharge instructions? yes Do you have any questions about your discharge instructions? no Were you given any prescriptions at discharge? yes Were you able to get your prescriptions filled? yes Do you understand how to take your medications as ordered? yes Do you have any questions about your follow up appointment and do you plan to keep your follow up appointment? no questions, follow up with PCP on 01/01/23 Is there anything else that you would like to discuss? no Questions/Comments/Concerns/Other:
== END 2022-12-19 12:18 | disposition home or self-care (01) | DRG 872 ==
LOC: ER 20:45 → MS 23:15
PROVIDERS: Physician Assistant; Admitting Provider Internal Medicine; Emergency Provider Internal Medicine; Visit Provider Internal Medicine
DX: A41.51 Sepsis due to Escherichia coli [E. coli] (principal); N17.9 Acute kidney failure, unspecified; N13.6 Pyonephrosis; E87.1 Hypo-osmolality and hyponatremia; R11.2 Nausea with vomiting, unspecified; I10 Essential (primary) hypertension; Z79.899 Other long term (current) drug therapy; Z20.822 Contact with and (suspected) exposure to COVID-19; Z87.442 Personal history of urinary calculi
CPT/HCPCS: 36415; 71045; 74176; 80048; 80053; 81001; 83605; 83735; 84703; 85025; 85027; 87040; 87070; 87086; 87150; 87186; 87635; 87811; 87880; 93005; 94761; 96361; 96365; 96366; 96367; 96372; 96375; 99285; Q3014

== ENCOUNTER 2023-07-16 20:38 | Outpatient (REF) | payer OTHER, SELFPAY ==
[2023-07-21 11:08] LABS: Age Gdln ACOG Testing Note (.); HPV Aptima Negative (Negative); IGP, Aptima HPV, rfx 16/18,45 Note (.)
== END 2023-07-16 20:39 | disposition home or self-care (01) ==
LOC: LAB 20:38
PROVIDERS: Visit Provider Physician Assistant
DX: Z01.419 Encounter for gynecological examination (general) (routine) without abnormal findings (principal)
CPT/HCPCS: 87624; G0145

== ENCOUNTER 2024-06-24 16:38 | Emergency (ER) | payer OTHER, SELFPAY ==
[2024-06-24 16:42] VITALS: BP 158/109; PULSE 80; TEMP 36.9; O2SAT 98; BMI 30.2
--- NOTE | 2024-06-24 16:53 | ED.GENADUL1 ---
HPI HPI - General Adult General Chief complaint: Abdominal Pain Stated complaint: POSSIBLE KIDNEY STONES Time Seen by Provider: 06/24/24 16:38 Source: patient Mode of arrival: walk-in History of Present Illness HPI narrative: Patient is a 38-year-old female who presents to the emergency department for the evaluation of abdominal distention and bloating, pain for the last week. She has not had any fevers, nausea or vomiting. She states she is having normal bowel movements. She reports a sense of urinary urgency. She is concerned she may have a kidney stone. She cannot remember the last time she had a kidney stone. She has not had any previous abdominal surgeries, however she states she has had her tubes tied. She has no concern for . No medications taken prior to arrival. No flank or back pain. Related Data Home Medications ?Medication ?Instructions ?Recorded ?Confirmed lisinopril 10 mg tablet 10 mg PO DAILY 12/17/22 12/17/22 loperamide 2 mg capsule 2 mg PO DAILY 12/17/22 12/18/22 ondansetron 4 mg disintegrating 4 mg PO DAILY 12/17/22 12/18/22 tablet Previous Rx's ?Medication ?Instructions ?Recorded cefuroxime axetil 500 mg tablet 500 mg PO BID 7 days #14 tabs 12/19/22 ciprofloxacin HCl 500 mg tablet 500 mg PO BID #20 tabs 06/24/24 (Cipro) hyoscyamine sulfate 0.125 mg 0.125 mg PO Q6H PRN abdominal pain 06/24/24 tablet (Levsin) #12 tabs metronidazole 500 mg tablet 500 mg PO Q12H 10 days #20 tabs 06/24/24 ondansetron 4 mg disintegrating 4 mg PO Q6H PRN nausea and 06/24/24 tablet vomiting #12 tabs Allergies Allergy/AdvReac Type Severity Reaction Status Date / Time No Known Drug Allergies Allergy Verified 12/17/22 18:25 Opioid HPI Opioid Management Most Recent Opioid Data: Last Pain Scale 0 12/19/22 08:22 12/19/22 Review of Systems ROS Constitutional Denies: fever or chills Ears, nose, mouth, and throat Denies: throat pain or nasal congestion Cardiovascular Denies: chest pain Respiratory Denies: shortness of breath or cough Gastrointestinal Reports: abdominal pain; Denies: nausea, vomiting or diarrhea Integumentary/Breast Denies: rash Neurological Denies: numbness in extremities or weakness in extremities Hematologic/Lymphatic Denies: easy bruising or easy bleeding PFSH PFSH Medical History (Updated 06/24/24 @ 18:03 by PETRA Sousa) Multiple renal calculi ?N20.0 - Calculus of kidney (ICD-10) Hydroureteronephrosis ?N13.30 - Unspecified hydronephrosis (ICD-10) Pyelonephritis of left kidney ?N12 - Tubulo-interstitial nephritis, not specified as acute or chronic (ICD-10) HTN (hypertension) ?I10 - Essential (primary) hypertension (ICD-10) Spinal and epidural anesthesia induced headache during ?O29.40 - Spinal and epidural anesthesia induced headache during , unspecified trimester (ICD-10) Kidney stones ?N20.0 - Calculus of kidney (ICD-10) Pyelonephritis ?N12 - Tubulo-interstitial nephritis, not specified as acute or chronic (ICD-10) Surgical History (Updated 12/17/22 @ 22:23 by Rhina Stevens) Tubal ligation status ?Z98.51 - Tubal ligation status (ICD-10) H/O lithotripsy ?Z98.890 - Other specified postprocedural states (ICD-10) Social History Within the past year, how often did you have a drink containing alcohol: never Within the past year, how often did you have six or more drinks on one occasion: never Score interpretation: A score less than 3 is consistent with normal alcohol consumption. 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 Known occupational exposures/hazards: No Highest level of school completed/degree received: Bachelor's degree Do you want help with school or training: No Are you now , , , , never or living with a partner: In a typical week, how many times do you talk on the telephone with family, friends, or neighbors: 3 or more times per week How often do you get together with friends or relatives: 3 or more times per week How often do you attend druze or restorationism services: 4 or more times per year Do you belong to any clubs or organizations such as druze groups unions, fraternal or athletic groups, or school groups: yes Total score: 3 Score interpretation: A score of greater than or equal to 2 indicates the lowest level of social isolation. Little interest or pleasure in doing things: not at all Feeling down, depressed, or hopeless: not at all Feel stressed/tense/nervous/anxious/difficulty sleeping: not at all Life stressors: unknown source of stress Due to disability, difficulty making decisions: No Do you think of yourself as: straight/heterosexual Gender Identity: female Exam Narrative Exam Narrative: Gen.: Awake, alert, in no distress Head: Normocephalic, atraumatic ENT: Moist mucous membranes Respiratory: No respiratory distress Gastrointestinal: Abdomen is soft, stented but not rigid and nontender to palpation; no CVA tenderness Extremities: Moves extremities equally Psych: Normal mood and affect Neuro: No focal neuro deficit Skin: Warm, dry, intact Constitutional Vital Signs, click to edit/add: Last Vital Signs Temp 98.5 F 06/24/24 16:42 Pulse 80 06/24/24 16:42 Resp 16 06/24/24 16:42 BP 158/109 H 06/24/24 16:42 Pulse Ox 98 06/24/24 16:42 O2 Del Method Room Air 06/24/24 16:42 Course Vital Signs Vital signs: Vital Signs Temperature 98.5 F 06/24/24 16:42 Pulse Rate 80 06/24/24 16:42 Respiratory Rate 16 06/24/24 16:42 Blood Pressure 158/109 H 06/24/24 16:42 Pulse Oximetry 98 06/24/24 16:42 Oxygen Delivery Method Room Air 06/24/24 16:42 Temperature 98.5 F 06/24/24 16:42 Pulse Rate 80 06/24/24 16:42 Respiratory Rate 16 06/24/24 16:42 Blood Pressure 158/109 H 06/24/24 16:42 Pulse Oximetry 98 06/24/24 16:42 Oxygen Delivery Method Room Air 06/24/24 16:42 Medical Decision Making MDM Narrative Medical decision making narrative: Abdomen is soft and benign, patient is hemodynamically stable with normal lab studies. CT of the abdomen and pelvis shows acute sigmoid diverticulitis without perforation or abscess. Patient was instructed to follow clear liquid diet for 48 hours. She will be placed on Cipro, Flagyl, Levsin, Zofran. Follow-up with PCP and return to the ER if symptoms change or worsen. SUPERVISED APC VISIT, PHYSICIAN ATTESTATION: Based on the medical record the care appears appropriate. ? Medical Records Medical records reviewed: Yes I reviewed the patient's medical records Lab Data Lab results reviewed: Yes I reviewed the patient's lab results Labs: Lab Results 06/24/24 06/24/24 Range/Units 16:55 17:05 WBC 10.4 (4.0-11.0) 10^3/uL RBC 4.79 (4.20-5.40) 10^6/uL Hgb 13.5 (12.0-16.0) g/dL Hct 40.6 (36.0-48.0) % MCV 84.8 (81.0-99.0) fL MCH 28.2 (26.7-34.0) pg MCHC 33.3 (29.9-35.2) g/dL RDW 13.0 (11.0-15.0) % Plt Count 454 H (150-450) 10^3/uL MPV 10.4 (9.5-13.5) fL Neut % (Auto) 54.0 (43.0-75.0) % Lymph % (Auto) 33.3 (20.5-60.0) % [place] % (Auto) 8.9 (1.7-12.0) % Eos % (Auto) 2.9 (0.9-7.0) % Baso % (Auto) 0.7 (0.2-2.0) % Neut # (Auto) 5.6 (1.4-6.5) 10^3/uL Lymph # (Auto) 3.5 (1.2-3.8) 10^3/uL [place] # (Auto) 0.9 H (0.3-0.8) 10^3/uL Eos # (Auto) 0.3 (0.0-0.7) 10^3/uL Baso # (Auto) 0.1 (0.0-0.1) 10^3/uL Abs Immat Gran (auto) 0.02 (0.00-0.03) 10^3/uL Imm/Tot Granulo (auto) 0.2 (0.0-0.5) % Sodium 137 (136-145) mmol/L Potassium 3.6 (3.5-5.1) mmol/L Chloride 101 (98-107) mmol/L Carbon Dioxide 25.3 (21.0-32.0) mmol/L Anion Gap 14.3 BUN 14.0 (7.0-18.0) mg/dL Creatinine 0.98 (0.55-1.02) mg/dL Est GFR ( Amer) >60 (>=60 mL/min/1.73m^2) Est GFR (Non-Af Amer) >60 (>=60 mL/min/1.73m^2) BUN/Creatinine Ratio 14.3 Glucose 109 H (74-106) mg/dL Lactate 1.3 (0.4-2.0) mmol/L Calcium 8.7 (8.5-10.1) mg/dL Total Bilirubin 0.2 (0.2-1.0) mg/dL AST 15 (15-37) U/L ALT 39 (14-59) U/L Alkaline Phosphatase 118 H (46-116) U/L Total Protein 8.1 (6.4-8.2) g/dL Albumin 3.9 (3.4-5.0) g/dL Globulin 4.2 g/dL Albumin/Globulin Ratio 0.9 Lipase 36.0 (16.0-77.0) U/L Serum HCG, Qual Negative (NEGATIVE) Urine Color Lt. yellow (YELLOW) Urine Clarity Clear (CLEAR) Urine pH 6.0 (5.0-9.0) Ur Specific [place] 1.025 (1.005-1.025) Urine Protein Negative (NEG/TRACE) mg/dL Urine Glucose (UA) Negative (NEGATIVE) mg/dL Urine Ketones Negative (NEGATIVE) mg/dL Urine Occult Blood Large A (NEGATIVE) Urine Nitrite Negative (NEGATIVE) Urine Bilirubin Negative (NEGATIVE) Urine Urobilinogen 0.2 (0.2-1.0) EU/dL Ur Leukocyte Esterase Negative (NEGATIVE) Urine RBC 5-10 A (0-2) #/HPF Urine WBC 0-2 A (NONE SEEN) #/HPF Ur Squamous Epith Cells Few A (NONE/RARE) #/LPF Urine Crystals None seen (None Seen) #/HPF Urine Bacteria Trace A (NONE SEEN) #/HPF Urine Casts None seen (NONE SEEN) #/LPF Urine Mucus Trace A (NONE SEEN) Ur Culture Indicated? No Imaging Data CT scan - abdomen: Attestation: I have reviewed the pertinent imaging results. Radiologist's impression: Acute sigmoid diverticulitis, no perforation Discharge Plan Discharge Chief Complaint: Abdominal Pain Clinical Impression: Diverticulitis, Abdominal pain Patient Disposition: Home, Self-Care Time of Disposition Decision: 18:03 Condition: Good Prescriptions / Home Meds: New metronidazole 500 mg tablet 500 mg PO Q12H 10 Days Qty: 20 0RF ciprofloxacin HCl [Cipro] 500 mg tablet 500 mg PO BID Qty: 20 0RF hyoscyamine sulfate [Levsin] 0.125 mg tablet 0.125 mg PO Q6H PRN (Reason: abdominal pain) Qty: 12 0RF ondansetron 4 mg tablet,disintegrating 4 mg PO Q6H PRN (Reason: nausea and vomiting) Qty: 12 0RF No Action lisinopril 10 mg tablet 10 mg PO DAILY loperamide 2 mg capsule 2 mg PO DAILY ondansetron 4 mg tablet,disintegrating 4 mg PO DAILY cefuroxime axetil 500 mg tablet 500 mg PO BID 7 Days Qty: 14 0RF Print Language: Trinidadian Instructions: Diverticulitis (ED), Diverticulitis Diet (ED) Additional Instructions: Please follow a clear liquid diet for 48 hours Please follow up with your doctor for further evaluation Referrals: Physician,Non-Staff, MD [Primary Care Provider] - 1 week
[2024-06-24] MEDS: 0.9 % SODIUM CHLORIDE 1,000 ML 999 ML IV (17:30)
[2024-06-24] MEDS: HYOSCYAMINE SULFATE 0.125 MG TAB.SUBL SL (17:31)
[2024-06-24 17:35] LABS: Basophils Absolute Auto 0.1 10^3/uL (0.0-0.1); Basophils Percent Auto 0.7 % (0.2-2.0); Eosinophils Absolute Auto 0.3 10^3/uL (0.0-0.7); Eosinophils Percent Auto 2.9 % (0.9-7.0); Hematocrit 40.6 % (36.0-48.0); Hemoglobin 13.5 g/dL (12.0-16.0); Immature Granulocytes Abs Auto 0.02 10^3/uL (0.00-0.03); Immature Granulocytes Pct Auto 0.2 % (0.0-0.5); Lymphocytes Absolute Auto 3.5 10^3/uL (1.2-3.8); Lymphocytes Percent Auto 33.3 % (20.5-60.0); Mean Corpuscular HGB Conc 33.3 g/dL (29.9-35.2); Mean Corpuscular Hemoglobin 28.2 pg (26.7-34.0); Mean Corpuscular Volume 84.8 fL (81.0-99.0); Mean Platelet Volume 10.4 fL (9.5-13.5); Monocytes Absolute Auto 0.9 10^3/uL (0.3-0.8); Monocytes Percent Auto 8.9 % (1.7-12.0); Neutrophils Absolute Auto 5.6 10^3/uL (1.4-6.5); Platelet Count 454 10^3/uL (150-450); Red Blood Count 4.79 10^6/uL (4.20-5.40); White Blood Count 10.4 10^3/uL (4.0-11.0)
[2024-06-24 17:37] LABS: Bilirubin Urine NEGATIVE (NEGATIVE); Blood Urine LARGE (NEGATIVE); Clarity Urine CLEAR (CLEAR); Color Urine LT. YELLOW (YELLOW); Glucose Urine UA NEGATIVE (NEGATIVE); Ketones Urine NEGATIVE (NEGATIVE); Leukocyte Esterase Urine NEGATIVE (NEGATIVE); Nitrite Urine NEGATIVE (NEGATIVE); Protein Urine NEGATIVE (NEG/TRACE); Specific Gravity Urine 1.025 (1.005-1.025); Urobilinogen Urine 0.2 EU/dL (0.2-1.0)
[2024-06-24 17:45] LABS: HCG Qualitative NEGATIVE (NEGATIVE); Internal Control Within Normal Limits
[2024-06-24 17:48] LABS: Bacteria Urine TRACE #/HPF (NONE SEEN); Cast Seen? NONE SEEN #/LPF (NONE SEEN); Crystals Seen? None Seen #/HPF (None Seen); Mucus Urine TRACE (NONE SEEN); Squamous Epithelial Cell Urine FEW #/LPF (NONE/RARE); Urine Culture Indicated NO; WBC Urine 0-2 #/HPF (NONE SEEN)
[2024-06-24 17:51] LABS: Alanine Aminotransferase 39 U/L (14-59); Albumin Globulin Ratio 0.9; Albumin Level 3.9 g/dL (3.4-5.0); Alkaline Phosphatase 118 U/L (46-116); Anion Gap 14.3; Aspartate Amino Transferase 15 U/L (15-37); BUN Creatinine Ratio 14.3; Bilirubin Total 0.2 mg/dL (0.2-1.0); Calcium 8.7 mg/dL (8.5-10.1); Carbon Dioxide 25.3 mmol/L (21.0-32.0); Chloride 101 mmol/L (98-107); Estimated GFR (African America >60 (>=60 mL/min/1.73m^2); Estimated GFR (Non-African Ame >60 (>=60 mL/min/1.73m^2); Globulin 4.2 g/dL; Glucose 109 mg/dL (74-106); Potassium 3.6 mmol/L (3.5-5.1); Sodium 137 mmol/L (136-145); Total Protein 8.1 g/dL (6.4-8.2)
[2024-06-24 17:53] LABS: Lactate/Lactic Acid 1.3 mmol/L (0.4-2.0)
== END 2024-06-24 18:36 | disposition home or self-care (01) ==
PROVIDERS: Physician Assistant; Emergency Provider Emergency Medicine
DX: K57.92 Diverticulitis of intestine, part unspecified, without perforation or abscess without bleeding (principal); R10.84 Generalized abdominal pain
CPT/HCPCS: 36415; 74176; 80053; 81001; 83605; 83690; 84703; 85025; 99285

== ENCOUNTER 2024-08-04 18:08 | Outpatient (REF) | payer OTHER, SELFPAY ==
--- OUTSIDE RECORDS SUMMARY | 2024-08-04 18:14 | XMS_ITS | CCD ---
Author Organization [facility] Care Team Providers Care Weighbridge Operator Name Role Phone ZoSandy Unavailable Clark Szymanski III Primary Care Physician Diane Martinez. Attending Unavailable LueDiane. Attending Unavailable LUE ., DIANE M Admitting Unavailable LUE ., DIANE Radford Attending Unavailable REQUEST, DR NONE LISTED Primary Care Unavaila ble KARASIK ., DR ROSE Admitting Unavailabl e KARASIK ., DR ROSE Attending Unavailabl e MISC, DR BIGGS Primary Care Unavailable KARASIK ., DR ROSE Consulting Unavailabl e REQUEST, DR NONE LISTED Primary Care Unavaila ble PRISCILLA ., MADISON Admitting Unavailable PRISCILLA ., MADISON Attending Unavailable MAGDALENA PICHARDO Consulting Unavailable PRISCILLA ., MADISON Consulting Unavailable LUE ., DIANE M Admitting Unavailable LUE ., DIANE Radford Attending Unavailable MISC, DR BIGGS Primary Care Unavailable LUE ., DIANE Radford Consulting Unavailable LUE ., DIANE M Admitting Unavailable LUE ., DIANE Radford Attending Unavailable MISC, DR BIGGS Primary Care Unavailable Sandy Welch Attending Unavailable Sandy Welch Admitting Unavailable Szymanski III, Clark R Primary Care Unavailabl e Szymanski III, DO Clark R Primary Care Provider ANTHONY Welch Attending Provider HORTENCIA TRAYLOR Attending Unavailable Anusha, Zuly Galdamezal Referring Unavaila ble Sarmini, Zuly Liz Attending Unavaila ble Sarmini, Zuly Liz Attending Unavaila ble Sarmini, Zuly Liz Attending Unavaila ble Unavailable Primary Care Provider Unavailabl e Allergies Allergy Classification Reported Allergen(s) Allergy Type Date of Onset Reaction(s) Facility (2 sources) No Known Medication Allergies; Translations: [No Known Medication Allergies] Propensity to adverse reactions (disorder) [facility] (1 source) Contrast media Drug allergy (disorder) [facility] (1 source) Contrast media; Translations: [Contrast Dye] Propensity to adverse reactions (disorder) [facility] Medications Current Medications Medication Drug Class(es) Dates Sig (Normalized) Sig (Original) [id number] 200 actuat albuterol 0.09 mg/actuat metered dose inhaler (1 source) beta2-Adrenergic Agonist Start: 03-22-2016 take 2 puff(s) by inhalation every six hours as needed Ventolin HFA 108 (90 Base) MCG/ACT 2 puffs as needed Inhalation every 6h prn Mar, Active benzonatate 100 mg oral capsule (1 source) Non-narcotic Antitussive Start: 03-22-2016 take 1 capsule by mouth three times daily as needed Tessalon Perles 100 MG 1 capsule as needed Orally Three times a day Mar, Active cephalexin 500 mg oral capsule (1 source) Cephalosporin Antibacterial Start: 05-01-2022 take 1 mg by mouth every twelve hours cephalexin 500 mg Cap mg cap(s), Oral, q12hr, Refills(s) 0 Start Date: 05/01/22 Status: Ordered lisinopril 10 mg oral tablet (3 sources) Angiotensin Converting Enzyme Inhibitor Start: 06-12-2023 take 1 tablet by mouth once daily lisinopril 10 MG tablet Take 10 mg by mouth Daily 06/12/2023 Active Problems Problem Classification Problem Date Documented Date Episodic/Chronic Abdominal pain (3 sources) Unspecified abdominal pain; Translations: [UNSPECIFIED ABDOMINAL PAIN] Onset: 2 Episodic Calculus of urinary tract (3 sources) Kidney stone; Translations: [Calculus of kidney] Onset: 2 Episodic Genitourinary symptoms and ill-defined conditions (1 source) Personal history of urinary (tract) infections; Translations: [PERS HX URINARY TRACT INFECTIONS] Onset: 2 Episodic Immunizations and screening for infectious disease (2 sources) Contact with and (suspected) exposure to other viral communicable diseases; Translations: [Encounter for screening for human papillomavirus (HPV)] Onset: 2 Resolved: 2 Episodic Nonspecific chest pain (1 source) Atypical chest pain; Translations: [Other chest pain] 10-07-2018 Episodic Other diseases of kidney and ureters (1 source) Acquired renal cyst without neoplastic change; Translations: [Cyst of kidney, acquired] Onset: 2 Episodic Other diseases of kidney and ureters (1 source) Cyst of kidney 05-01-2022 Episodic Other nutritional; endocrine; and metabolic disorders (1 source) Disorder of calcium metabolism; 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] Onset: 2 Chronic Other nutritional; endocrine; and metabolic disorders (1 source) Nephrocalcinosis 05-01-2022 Chronic Other screening for suspected conditions (not mental disorders or infectious disease) (4 sources) Encounter for screening for malignant neoplasm of cervix; Translations: [ENC SCREENING MALIG NEOPLASM CERV] Onset: 3 Episodic Unclassified (1 source) CONTACT W/AND (SUSP) EXPOS COVID-19; Translations: [CONTACT W/AND (SUSP) EXPOS COVID-19] Onset: 3 Urinary tract infections (4 sources) Tubulointerstitial nephritis; Translations: [Tubulo-interstitial nephritis, not specified as acute or chronic] Onset: 2 Episodic Results Test Name Value Interpretation Reference Range Facility HCG ( test) Ql (U)o n 08-04-2024 Interpretation and review of laboratory results Normal [facility] Preg Test, Ur Negative Negative [facility] Urinalysis macro (dipstick) panel (U)on 08-04-2024 Bilirubin, UA Negative Negative - 4(70) +++ mg/dL [facility] Blood, UA Positive Negative - 50 Shawn/mcL [facility] Comment on above: trace-lysed Clarity, UA Clear [facility] Color, UA Yellow [facility] Glucose, UA Negative Negative - 2000(110) ++++ mg/dL [facility] Interpretation and review of laboratory results Abnormal [facility] Ketones, UA Negative Negative - 160(16) ++++ mg/dL [facility] Leukocytes, UA Negative Negative - 500+++ Nasrin/mcL [facility] Nitrite, UA Negative Negative - Positive [facility] pH, UA 6.5 5 - 9 [facility] Protein, UA Negative Negative - 1999(20) ++++ mg/dL [facility] Spec Grav, UA 1.01 1 - 1.03 [facility] Urobilinogen, UA 0.2 0.2 - 12 mg/dL [facility] Gastroenterology Office/Clin ic Noteon 07-15-2024 Gastroenterology Office/Clinic Note Gastroenterology Office/Clinic Note Chief Complaint Diverticulitis- intermittent abdominal pain and stool is greenish yellow. HPI Staff New patient is a(n) 38 year old female who was referred by Dr Szymanski for diverticulitis. Seen in [place] ED for abdominal distention, bloating and pain x1 week on 06/25/24. CT scan completed and it showed diverticulitis. Prescribed Cipro, Flagyl, Levsin and Zofran. ED recommended f/u with GI to discuss colonoscopy. CT scan - abdomen @ [place]: Attestation: I have reviewed the pertinent imaging results. Radiologist's impression: Acute sigmoid diverticulitis, no perforation Labs @ [facility]: Glucose 109 H (74-106) mg/dL Alkaline Phosphatase 118 H (46-116) U/L Platelet Count 454 (150-450) History of Present Illness Reviewed HPI collected by staff Review of Systems PHQ Score Initial Depression Screen Score: 1 SCORE All systems reviewed, negative; Except for above Physical Exam Vitals & Measurements HR: 97(Peripheral) BP: 141/91 HT: 60 in HT: 152.4 cm WT: 76 kg WT: 167.551 lb BMI: 32.72 No acute distress Assessment/Plan 1. Diverticulitis (K57.92: Diverticulitis of intestine, part unspecified, without perforation or abscess without bleeding) Showed on CT scan 06/2024 Prescribed Cipro, Flagyl, Levsin and Zofran at [facility] ER Pain is 2/10 now Having 2-3 BMs daily, yellowish slushy stools daily Has bloating Reports this is the first episode she has ever had Bentyl and IBGard prescribed Recommended high fiber and Mediterranean diet Prescribed water-soluble fiber and Simethicone Schedule Colonoscopy with pediatric scope to evaluate. Discussed risks such as bleeding, injury and perforation as well as benefits. Patient agreeable. 2. Abdominal pain (R10.9: Unspecified abdominal pain) 3. Abdominal distention, (R14.0: Abdominal distension (gaseous))Abdominal bloating I, Cielo Gresham, personally scribed for Zuly Tavares on 07/15/2024 13:22:38. . Documentation recorded by Marta Gresham, accurately reflects the services I performed and decisions made by me. Zuly Tavares MD Follow-up No qualifying data available Problem List/Past Medical History Ongoing Abdominal bloating Abdominal distention Abdominal pain Diverticulitis Kidney stone Nephrocalcinosis Pyelonephritis Renal cyst UTI (urinary tract infection) Historical No qualifying data Procedure/Surgical History Tubal ligation. Medications lisinopril 10 mg Tab, 10 mg, Oral, Daily Metamucil 3.4 g/5.2 g oral powder, 3.4 gm, Oral, TID, PRN, 3 refills simethicone 180 mg oral capsule, 180 mg= 1 cap(s), Oral, QID, PRN, 3 refills Allergies Contrast Dye (Unknown) No Known Medication Allergies Social History Alcohol Never., 07/12/2024 Substance Abuse Never., 07/12/2024 Tobacco Never (less than 100 in lifetime) Tobacco Use:. Never Smokeless Tobacco Use:., 07/15/2024 Family History Family history is unknown Immunizations Vaccine Date Status Comments diphtheria/pertussis, acel/tetanus adult 12/29/2023 Recorded SARS-CoV-2 (COVID-19) mRNA BNT-162b2 vax 01/05/2021 Recorded 2022-05-01: TPVAL SARS-CoV-2 (COVID-19) mRNA BNT-162b2 vax 12/14/2020 Recorded 2022-05-01: TPVAL [facility] Comment on above: Result Comment: Elec tronically Signed By: Anusha ARANGO, Zuly Liz\.br\Date and Time Signed: 07/15/24 13:34 EDT\.br\Electronically Co-Signed By: Cielo Gresham MA\.br\Date and Time Co-Signed: 07/15/24 13:33 EDT XR chest 1Von 08-26-2022 XR chest 1V [facility] [place] [address] [place] [address] XRay Report Signed Patient: Nidia Ordoñez MR#: [id number] 49 : 1985 Acct:[id number] Age/Sex: 37 / F ADM Date: 08/26/22 Loc: [place] Room: Type: [facility] REF Attending Dr: Sandy Welch CAR JOCKEY Copies to: Sandy Welch APRN Ordering Provider: Sandy Welch APRN Date of Service: 08/26/22 XR/XR chest 1V: PRE EMPLOYMENT RESP PHYSICAL PA CHEST: CLINICAL HISTORY: Preemployment respiratory physical COMPARISON: 05/20/2021 The heart is normal in size. The lungs are clear. The pulmonary vasculature is normal. Mediastinum and hilar regions are unremarkable. No pleural effusions are seen. Visualized bones are intact. XR/XR chest 1V IMPRESSION: NEGATIVE CHEST. Impression dictated by: Jemma Hernandez M.D.08/26/2022 3:11 PM Dictation Location: [place] [address] Transcribed By: [facility] 08/26/22 151 Dictated By: Jemma Hernandez MD 08/26/22 151 Signed By: 08/26/22 151 [facility] PAP ACOG PANEL 2: 30 to 65on 06-26-2022 . . Normal [facility] Comment on above: Result Comment: Perf ormed at: WB Performed By: #### [id number] #### [facility] [address] [place] [address] [address] Gregoria Messer Age Gdln ACOG Testing 30-65 Normal [facility] Comment on above: Performed By: #### [id number] #### [facility] [address] [address] [address] Gregoria Messer DIAGNOSIS: Comment Normal [facility] Comment on above: Result Comment: NEGA TIVE FOR INTRAEPITHELIAL LESION OR MALIGNANCY. Performed at: WB Performed By: #### [id number] #### [facility] [address] [address] [address] Gregoria Messer HPV Aptima Negative Normal Negative [facility] Comment on above: Result Comment: This nucleic acid amplification test detects fourteen high-risk HPV types (16,18,31,33,35,39,45,51,52,56,58,59,66,68) without differentiation. Performed at: =G Performed By: #### [id number] #### [facility] [address] [place] [address] Dr. Gregoria Messer HPV Genotype Reflex Comment Normal [facility] Comment on above: Result Comment: Crit eria not met, HPV Genotype not performed. Performed at: WB Performed By: #### [id number] #### [facility] [address] [place] [address] Dr. Gregoria Messer Methodology: Comment Normal [facility] Comment on above: Result Comment: This liquid based ThinPrep(R) pap test was screened with the use of an image guided system. Performed at: WB Performed By: #### [id number] #### [facility] [address] [place] [address] Dr. Gregoria Messer Note: Comment Normal [facility] Comment on above: Result Comment: The Pap smear is a screening test designed to aid in the detection of premalignant and malignant conditions of the uterine cervix. It is not a diagnostic procedure and should not be used as the sole means of detecting cervical cancer. Both false-positive and false-negative reports do occur. . Performed at: WB Performed By: #### [id number] #### [facility] [address] [place] [address] Dr. Gregoria Messer Performed by: Comment Normal [facility] Comment on above: Result Comment: Marta Gambino, Wire Mesh Gate Assembler (ASCP) Performed at: WB Performed By: #### [id number] #### [facility] [address] [place] [address] Dr. Gregoria Messer Specimen adequacy: Comment Normal [facility] Comment on above: Result Comment: Sati sfactory for evaluation. Endocervical and/or squamous metaplastic cells (endocervical component) are present. Performed at: WB Performed By: #### [id number] #### [facility] [address] [place], [place] [address] Dr. Gregoria Messer Consultation Noteon 05-22-19 Consultation Note [id number]: 127 [facility] Reportson 05-22-2022 Lab Reports [id number]: 127 [facility] Formson 05-17-2022 Forms [id number]: 127 [facility] Covid-19 PCR (CVDTB)on 05-05 SARS-CoV-2 (COVID-19) RNA JHOANA+probe Ql (Unsp spec) Not detected Normal NOT DETECTED [facility] Comment on above: Result Comment: This test is not yet approved or cleared by the [place] FDA. When there are no FDA-approved or cleared tests available, and other criteria are met, FDA can make tests available under an emergency access mechanism called an Emergency Use Authorization (EUA). The EUA for this test is supported by the [place] of Health and Human Service's (HHS's) declaration that circumstances exist to justify the emergency use of in vitro diagnostics for the detection and/or diagnosis of the virus that causes COVID-19. This EUA will remain in effect (meaning this test can be used) for the duration of the COVID-19 declaration justifying emergency of IVDs, unless it is terminated or revoked by FDA (after which the test may no longer be used). When diagnostic testing is negative, the possibility of a false negative should be considered in the context of a patient's recent exposures and the presence of clinical signs and symptoms consistent with SARS-CoV-2. Performed By: #### [facility] #### [facility] [address] [place], [place] [id number] Dr. Gregoria Messer Pre-Certification Formon Pre-Certification Form [id number] :127 [facility] ED Note-Physicianon 01-03-20 23 ED Note-Physician [id number] :127 [facility] Formson 05-02-2022 Forms [id number]: 127 [facility] Screenson 05-02-2022 Screens [id number] :127 [facility] Ambulatory Visit Summaryon 1 07-02-2021 Ambulatory Visit Summary NIDIA ORDOÑEZ :1985 Visit Date:05/01/2022 Ambulatory Visit Instructions Your Diagnosis Kidney stone Nephrocalcinosis Pyelonephritis Asymptomatic microscopic hematuria Renal cyst Other disorders of kidney and ureter in diseases classified elsewhere Tests Performed Urnls Dip Stick Auto w/o Microscopy POC 47090 Your Care Team Attending Physician - Diane Martinez MD Primary Care Physician - Clark Szymanski III, DO This Is Your Medications List Contact prescribing physician if questions or concerns cephalexin (cephalexin 500 mg Cap) Procedures Performed Tubal ligation. Discharge Vitals Heart Rate (Peripheral) 81 Blood Pressure 117/91 Height 180 cm Height 71 in Weight 73 kg Weight 160.6 lb BMI 22.53 What to do next You Need to Schedule the Following Appointments Follow Up with Juan ARANGO, Diane De La Cruz, URL, URO When: Where: [address] [place] [address] [phone] Someone Will Contact You Regarding These Appointments [facility] External Ambulatory Referral, Nephrology, Dr. Archibald, 05/01/22 16:17:00 EST Medications What How Much When Instructions Unchanged cephalexin (cephalexin 500 mg Cap) Every 12 hours Contact prescribing physician if questions or concerns Test Results Urnls Dip Stick Auto w/o Microscopy POC 30684 (05/01/2022) Bilirubin Urine Dipstick - Negative Blood Urine Dipstick - 2+ Moderate Glucose Urine Dipstick - Negative Ketones Urine Dipstick - Negative Leukocytes Urine Dipstick - 1+ Small Nitrite Urine Dipstick - Negative Protein Urine Dipstick - Negative Specific [place] Urine Dipstick - 1.020 Urine Appearance Urine Dipstick - Clear Urine Color Urine Dipstick - Yellow Urobilinogen Urine Dipstick - Normal 0.2-1 EU/dl pH Urine Dipstick - 6.5 Allergies No Known Medication Allergies Problems Ongoing - Any problem that you are currently receiving treatment for. Asymptomatic microscopic hematuria Kidney stone Nephrocalcinosis Pyelonephritis Renal cyst UTI (urinary tract infection) Education Materials Kidney Stones Kidney stones are rock-like masses that form inside of the kidneys. Kidneys are organs that make pee (urine). A kidney stone may move into other parts of the urinary tract, including: ? The tubes that connect the kidneys to the bladder (ureters). ? The bladder. ? The tube that carries urine out of the body (urethra). Kidney stones can cause very bad pain and can block the flow of pee. The stone usually leaves your body (passes) through your pee. You may need to have a doctor take out the stone. What are the causes? Kidney stones may be caused by: ? A condition in which certain glands make too much parathyroid hormone (primary hyperparathyroidism). ? A buildup of a type of crystals in the bladder made of a chemical called uric acid. The body makes uric acid when you eat certain foods. ? Narrowing (stricture) of one or both of the ureters. ? A kidney blockage that you were born with. ? Past surgery on the kidney or the ureters, such as gastric bypass surgery. What increases the risk? You are more likely to develop this condition if: ? You have had a kidney stone in the past. ? You have a family history of kidney stones. ? You do not drink enough water. ? You eat a diet that is high in protein, salt (sodium), or sugar. ? You are overweight or very overweight (obese). What are the signs or symptoms? Symptoms of a kidney stone may include: ? Pain in the side of the belly, right below the ribs (flank pain). Pain usually spreads (radiates) to the groin. ? Needing to pee often or right away (urgently). ? Pain when going pee (urinating). ? Blood in your pee (hematuria). ? Feeling like you may vomit (nauseous). ? Vomiting. ? Fever and chills. How is this treated? Treatment depends on the size, location, and makeup of the kidney stones. The stones will often pass out of the body through peeing. You may need to: ? Drink more fluid to help pass the stone. In some cases, you may be given fluids through an IV tube put into one of your veins at the hospital. ? Take medicine for pain. ? Make changes in your diet to help keep kidney stones from coming back. Sometimes, medical procedures are needed to remove a kidney stone. This may involve: ? A procedure to break up kidney stones using a beam of light (laser) or shock waves. ? Surgery to remove the kidney stones. Follow these instructions at home: Medicines ? Take peng-iln-qqdryec and prescription medicines only as told by your doctor. ? Ask your doctor if the medicine prescribed to you requires you to avoid driving or using heavy machinery. Eating and drinking ? Drink enough fluid to keep your pee pale yellow. You may be told to drink at least 8?10 glasses of water each day. This will help you pass the stone. ? If (more content not included)... [facility] Patient Educationon 05-01-20 Patient Education Urology Kidney Stones Kidney stones are rock-like masses that form inside of the kidneys. Kidneys are organs that make pee (urine). A kidney stone may move into other parts of the urinary tract, including: ? The tubes that connect the kidneys to the bladder (ureters). ? The bladder. ? The tube that carries urine out of the body (urethra). Kidney stones can cause very bad pain and can block the flow of pee. The stone usually leaves your body (passes) through your pee. You may need to have a doctor take out the stone. What are the causes? Kidney stones may be caused by: ? A condition in which certain glands make too much parathyroid hormone (primary hyperparathyroidism). ? A buildup of a type of crystals in the bladder made of a chemical called uric acid. The body makes uric acid when you eat certain foods. ? Narrowing (stricture) of one or both of the ureters. ? A kidney blockage that you were born with. ? Past surgery on the kidney or the ureters, such as gastric bypass surgery. What increases the risk? You are more likely to develop this condition if: ? You have had a kidney stone in the past. ? You have a family history of kidney stones. ? You do not drink enough water. ? You eat a diet that is high in protein, salt (sodium), or sugar. ? You are overweight or very overweight (obese). What are the signs or symptoms? Symptoms of a kidney stone may include: ? Pain in the side of the belly, right below the ribs (flank pain). Pain usually spreads (radiates) to the groin. ? Needing to pee often or right away (urgently). ? Pain when going pee (urinating). ? Blood in your pee (hematuria). ? Feeling like you may vomit (nauseous). ? Vomiting. ? Fever and chills. How is this treated? Treatment depends on the size, location, and makeup of the kidney stones. The stones will often pass out of the body through peeing. You may need to: ? Drink more fluid to help pass the stone. In some cases, you may be given fluids through an IV tube put into one of your veins at the hospital. ? Take medicine for pain. ? Make changes in your diet to help keep kidney stones from coming back. Sometimes, medical procedures are needed to remove a kidney stone. This may involve: ? A procedure to break up kidney stones using a beam of light (laser) or shock waves. ? Surgery to remove the kidney stones. Follow these instructions at home: Medicines ? Take pjcp-ngx-hzdrdrc and prescription medicines only as told by your doctor. ? Ask your doctor if the medicine prescribed to you requires you to avoid driving or using heavy machinery. Eating and drinking ? Drink enough fluid to keep your pee pale yellow. You may be told to drink at least 8?10 glasses of water each day. This will help you pass the stone. ? If told by your doctor, change your diet. This may include: ? Limiting how much salt you eat. ? Eating more fruits and vegetables. ? Limiting how much meat, poultry, fish, and eggs you eat. ? Follow instructions from your doctor about eating or drinking restrictions. General instructions ? Collect pee samples as told by your doctor. You may need to collect a pee sample: ? 24 hours after a stone comes out. ? 8?12 weeks after a stone comes out, and every 6?12 months after that. ? Strain your pee every time you pee (urinate), for as long as told. Use the strainer that your doctor recommends. ? Do not throw out the stone. Keep it so that it can be tested by your doctor. ? Keep all follow-up visits as told by your doctor. This is important. You may need follow-up tests. How is this prevented? To prevent another kidney stone: ? Drink enough fluid to keep your pee pale yellow. This is the best way to prevent kidney stones. ? Eat healthy foods. ? Avoid certain foods as told by your doctor. You may be told to eat less protein. ? Stay at a healthy weight. Where to find more information ? National Kidney Foundation (NKF): www.kidney.org ? [employer] (UCF): www.urologyhealth.org Contact a doctor if: ? You have pain that gets worse or does not get better with medicine. Get help right away if: ? You have a fever or chills. ? You get very bad pain. ? You get new pain in your belly (abdomen). ? You pass out (faint). ? You cannot pee. Summary ? Kidney stones are rock-like masses that form inside of the kidneys. ? Kidney stones can cause very bad pain and can block the flow of pee. ? The stones will often pass out of the body through peeing. ? Drink enough fluid to keep your pee pale yellow. This information is not intended to replace advice given to you by your health care provider. Make sure you discuss any questions you have with your health care provider. Document Released: 10/07/2008 Document Revised: 09/07/2019 Document Reviewed: 09/07/2019 [employer] Patient Education ? 2019 [employer]. [facility] Urology Office/Clinic Noteon 05-01-2022 Urology Office/Clinic Note Chief Complaint Pt is here for [facility] ER f/u HPI Staff Nidia is a 36 y.o. female new patient here for [facility] ER follow up. Pt presented to [facility] ER on 04/28/[address] a/p wo con done on 04/28/22 showed extensive bilateral medullary nephrocalcinosis, 5mm nonobstructing stone in the lower pole of the RT kidney, small LT renal cyst. Dysuria: denies Incomplete bladder emptying: denies Hematuria: denies Frequency: denies Urgency: denies Nocturia: 1x a night Stream: steady stream Leaking: denies Post void dripping: denies Wearing pads/ Depends: denies Urge incontinence: denies Stress incontinence: denies Incontinence without Sensory Awareness: denies Abdominal pain: denies Flank pain: RT side flank pain, pain scale 8/10 Sexual complaints: _ History of Present Illness Tests reviewed: reviewed and interpreted external records including CT AP wo contrast, labs, urine cultures, ER notes I have reviewed and verified the staff HPI to be accurate for this encounter. There have been no associated fever, chills, or blood in the urine. Review of Systems PHQ Score Initial Depression Screen Score: 0 ROS - Provider Constitutional: denies weight loss, denies hot flashes. Eyes: denies eye problems. Gastrointestinal: denies nausea, denies vomiting. Cardiovascular: denies chest pain or angina. Integumentary: no dryness Musculoskeletal: denies musculoskeletal symptoms. ENMT: denies otolaryngeal symptoms. Respiratory: no shortness of breath. Heme/Lymph: denies easy bleeding tendency, denies easy bruising tendency. Psychiatric: no confusion, no anxiety. Genitourinary: see HPI Physical Exam Vitals & Measurements HR: 81(Peripheral) BP: 117/91 HT: 71 in HT: 180 cm WT: 73 kg WT: 160.6 lb BMI: 22.53 General Appearance: alert , no acute distress, well nourished, well developed female. Head: normocephalic . Eyes: normal orbit and globe. ENMT: normal examination of external ears. Chest: symmetric chest rise, respirations non labored . Cardiovascular: regular rate and rhythm. Abdomen: soft, non distended, no tenderness Genitourinary: bladder nonpalpable, R CVA tenderness to palpation, no L CVA tenderness Skin: warm, dry, no bruising. Psychiatric: cooperative, affect appropriate for age, normal judgement, euthymic mood. Assessment/Plan 1. Kidney stone (N20.0: Calculus of kidney) CT a/p w/o con done on 04/28/22 [facility] ER showed extensive bilateral medullary nephrocalcinosis, 5mm nonobstructing stone in the lower pole of the RT kidney with smaller non obstructing stones in upper and mid poles, mild hydroureteronephrosis with stranding. Small LT renal cyst. First stone event 2018 treated via URS/laser with Dr Howe. No follow up since. Stone analysis CaPhos 45%, CaOx We discussed the etiology of kidney stone formation, including genetic predisposition, dietary factors, and different metabolism in patients. Discussed metabolic work-up to see why she is making stones. Also discussed finding of nephrocalcinosis on imaging. -Will refer to nephrology for further mgmt Discussed treatment options including observation vs ESWL vs URS vs PCNL. Risks/benefits of each option discussed. Pt elected to proceed with ureteroscopy. -Will schedule Cystoscopy, right retrograde pyelogram, right ureteroscopy laser lithotripsy/stone basket extraction, possible stent placement. The procedural risks, benefits, details, and treatment alternatives have been discussed with the patient. These include bleeding, infection, inability to break or retrieve all of the stone, injury to the ureter (the tube which connects the kidney to the bladder), injury to the kidney scarring of the ureter, and need for repeat procedures, among others. Full informed consent has been obtained. Will order General anesthesia. Ordered: [facility] [place] External Ambulatory Referral Urnls Dip Stick Auto w/o Microscopy POC 42911 Urology Procedure Order 2. Nephrocalcinosis (E83.59: Other disorders of calcium metabolism) Seen on CT done 04/28/2022. Family hx unknown. Risk stone formation -Referral to Nephrology for medical mgmt of medullary nephrocalcinosis Ordered: [facility] [place] External Ambulatory Referral Urnls Dip Stick Auto w/o Microscopy POC 48583 Urology Procedure Order 3. Pyelonephritis (N12: Tubulo-interstitial nephritis, not specified as acute or chronic) Pt is on Cephalexin every 8 hours for 10 days from [facility]. No further fevers since yesterday. Denies bladder UTI symptoms. Only flank pain. If sxs have not improved within 1 week to contact our office so we can either repeat the culture or change ABX. Last episode was 1 month after first stone treated 4 years ago. Denies recurrence since. No hx recurrent UTIs. Ordered: [facility] [place] External Ambulatory Referral Urology Procedure Order 4. Renal cyst (N28.1: Cyst of kidney, acquired) small LT renal cyst seen on CT done 04/28/2022. No surveillance recommended Ordered: [facility] [place] External Ambulatory Referral Urolo (more content not included)... [facility] Comment on above: Result Comment: Elec tronically Signed By: LuDiane chen MD\.br\Date and Time Signed: 05/01/22 17:06 EST\.br\Electronically Co-Signed By: Piper Nvaarrete MA\.br\Date and Time Co-Signed: 05/01/22 16:23 EST CULTURE URINEon 04-30-2022 CULTURE URINE Isolate 1 Escherichia coli >100,000 cfu/mL of ORGANISM 1 Escherichia coli ANTIBIOTIC M.I.C RX STATUS Ampicillin <=2 S F Ampicillin/Sulbactam <=2 S F Piperacillin/Tazobactam <=4 S F Cefazolin <=4 S F Ceftazidime <=1 S F Ceftriaxone <=1 S F Ertapenem <=0.5 S F Imipenem <=0.25 S F Amikacin <=2 S F Gentamicin <=1 S F Tobramycin <=1 S F Ciprofloxacin <=0.25 S F Levofloxacin <=0.12 S F Nitrofurantoin <=16 S F Trimethoprim/Sulfamethox azole >=320 R F Normal [facility] Comment on above: Performed By: #### U RCX #### [facility] [address] [place] [address] Dr. Gregoria Messer CBC AUTO DIFFon 04-28-2022 BASO # 0.1 103/ul Normal 0.0-0.1 [facility] Comment on above: Performed By: #### C BC #### [facility] [address] [place] [address] Dr. Gregoria Messer Basophils/100 WBC (Bld) 0.3 % Normal 0.2-2.0 [facility] Comment on above: Performed By: #### C BC #### [facility] [address] [place] [address] Dr. Gregoria Messer EO # 0.0 103/ul Normal 0.0-0.7 [facility] Comment on above: Performed By: #### C BC #### [facility] [address] [place] [address] Dr. Gregoria Messer Eosinophils/100 WBC (Bld) 0.1 % Critically low 0.9-7.0 [facility] Comment on above: Performed By: #### C BC #### [facility] [address] [place] [address] Dr. Gregoria Messer Erythrocyte distribution width (RBC) [Ratio] 13.6 % Normal 11.0-15.0 [facility] Comment on above: Performed By: #### C BC #### [facility] [address] [place] [address] Dr. Gregoria Messer Hematocrit (Bld) [Volume fraction] 40.4 % Normal 36.0-48.0 [facility] Comment on above: Performed By: #### C BC #### [facility] [address] [place] [address] Dr. Gregoria Messer Hemoglobin (Bld) [Mass/Vol] 13.4 g/dL Normal 12.0-16.0 [facility] Comment on above: Performed By: #### C BC #### [facility] [address] [place] [address] Dr. Gregoria Messer IG # 0.05 10e3/ul Critically high 0.00-0.03 [facility] Comment on above: Performed By: #### C BC #### [facility] [address] [place] [address] Dr. Gregoria Messer IG % 0.3 % Normal 0.0-0.5 [facility] Comment on above: Performed By: #### C BC #### [facility] [address] [place] [address] Dr. Gregoria Messer LYMPH # 1.6 103/ul Normal 1.2-3.8 [facility] Comment on above: Performed By: #### C BC #### [facility] [address] [place] [address] Dr. Gregoria Messer Lymphocytes/100 WBC (Bld) 9.2 % Critically low 20.5-60.0 [facility] Comment on above: Performed By: #### C BC #### [facility] [address] [place] [address] Dr. Gregoria Messer MANUAL DIFF REQ NO [facility] Comment on above: Performed By: #### C BC #### [facility] [address] [place], [place] [id number] Dr. Gregoria Messer MCH (RBC) [Entitic mass] 27.1 pg Normal 26.7-34.0 [facility] Comment on above: Performed By: #### C BC #### [facility] [address] [place] [address] Dr. Gregoria Messer MCHC (RBC) [Mass/Vol] 33.2 g/dL Normal 29.9-35.2 [facility] Comment on above: Performed By: #### C BC #### [facility] [address] [place] [address] Dr. Gregoria Messer MCV (RBC) [Entitic vol] 81.8 fL Normal 81.0-99.0 [facility] Comment on above: Performed By: #### C BC #### [facility] [address] [place] [address] Dr. Gregoria Messer MONO # 1.3 103/ul Critically high 0.3-0.8 [facility] Comment on above: Performed By: #### C BC #### [facility] [address] [place] [address] Dr. Gregoria Messer Monocytes/100 WBC (Bld) 7.9 % Normal 1.7-12.0 [facility] Comment on above: Performed By: #### C BC #### [facility] [address] [place] [address] Dr. Gregoria Messer NEUT # 13.9 103/ul Critically high 1.4-6.5 [facility] Comment on above: Performed By: #### C BC #### [facility] [address] [place] [address] Dr. Gregoria Messer Neutrophils/100 WBC (Bld) 82.2 % Critically high 43.0-75.0 [facility] Comment on above: Performed By: #### C BC #### [facility] [address] [place] [address] Dr. Gregoria Messer Platelet mean volume (Bld) [Entitic vol] 9.9 fL Normal 9.5-13.5 [facility] Comment on above: Performed By: #### C BC #### [facility] [address] [place], [place] [address] Dr. Gregoria Messer PLT 365 103/ul Normal 150-450 [facility] Comment on above: Performed By: #### C BC #### [facility] [address] [place] [id number] Gregoria Messer RBC 4.94 106/ul Normal 4.20-5.40 [facility] Comment on above: Performed By: #### C BC #### [facility] [address] [place], [place] [address] Dr. Gregoria Messer WBC 16.9 103/ul Critically high 4.0-11.0 [facility] Comment on above: Performed By: #### C BC #### [facility] [id number] Gregoria Messer CT ABD/PELVIS WO CONon 04-28 CT ABD/PELVIS WO CON EXAMINATION: CT ABD/PELVIS WO CON, 04/28/2022, 11:16 AM EST HISTORY: CALCULUS OF KIDNEY Right flank pain. COMPARISON: None. TECHNIQUE: CT scan of the abdomen and pelvis was performed without IV contrast. CT dose reduction technique was used, including Automated Exposure Control. FINDINGS: LOWER CHEST: 3 mm nodule in the left lower lobe, image 1 and adjacent 2 mm left lower lobe nodule on image 7. LIVER: Moderate diffuse fatty infiltration. Mildly enlargement of the right lobe measuring 18.5 cm in length. GALLBLADDER AND BILIARY SYSTEM: Normal. SPLEEN: Normal. PANCREAS: Normal. ADRENAL GLANDS: Normal. KIDNEYS AND URETERS: There is extensive bilateral medullary nephrocalcinosis. There is a 5 mm nonobstructing stone in the lower pole of the right kidney. Multiple additional small renal stones. There is mild right hydronephrosis and hydroureter as well as perinephric stranding. There are however no definite ureteral stones. There is a small left renal cyst. There is no left-sided hydroureteronephrosis. VASCULATURE: Normal. RETROPERITONEUM AND LYMPH NODES: Normal, with no lymphadenopathy. GASTROINTESTINAL TRACT/MESENTERY: Normal appearance of the stomach, small and large bowel. Normal mesentery/peritoneum. Normal appendix. BLADDER: Normal. REPRODUCTIVE SYSTEM: There are tubal occlusion devices in the adnexa bilaterally. BODY WALL: Normal. BONES: No acute abnormality. IMPRESSION: 1. Right hydroureteronephrosis and right perinephric stranding but no ureteral stones are identified. This may be due to recently passed stone, ureteral stricture, or urinary tract infection. Evaluation for pyelonephritis is nondiagnostic without IV contrast. 2. Medullary nephrocalcinosis which can be seen with medullary sponge kidney, renal tubular acidosis, and hyperparathyroidism. There are a few additional renal stones measuring up to 5 mm in the lower pole of the right kidney. 3. 3 mm and 2 mm nonspecific left lower lobe nodular densities. 4. Fatty liver and hepatomegaly. Electronically authenticated by: MAGDALENA PICHARDO Date: 2022-04-28 12:50 Normal [facility] ER URINE PROFILEon 2 Bilirubin Ql (U) Negative Normal NEGATIVE [facility] Comment on above: Performed By: #### P REGU, ERUR, UMICRO #### [facility] [address] [place] [address] Dr. Gregoria Messer Clarity (U) CLEAR Normal CLEAR [facility] Comment on above: Performed By: #### P REGU, ERUR, UMICRO #### [facility] [address] [place] [address] [address] Gregoria Messer Color (U) LT. YELLOW Normal YELLOW [facility] Comment on above: Performed By: #### P REGU, ERUR, UMICRO #### [facility] [address] [place] [address] [address] Gregoria Messer ERUAHD A micrscopic examina tion will be performed if indicated. Normal [facility] Comment on above: Performed By: #### P REGU, ERUR, UMICRO #### [facility] [address] [place] [address] [address] Gregoria Messer Glucose Ql (U) Negative Normal NEGATIVE [facility] Comment on above: Performed By: #### P REGU, ERUR, UMICRO #### [facility] [address] [place] [address] [address] Gregoria Messer Hemoglobin Ql (U) LARGE Abnormal NEGATIVE [facility] Comment on above: Performed By: #### P REGU, ERUR, UMICRO #### [facility] [address] [place] [address] [address] Gregoria Messer Ketones Ql (U) Negative Normal NEGATIVE [facility] Comment on above: Performed By: #### P REGU, ERUR, UMICRO #### [facility] [address] [place] [address] [address] Gregoria Messer LEUKOCYTES LARGE Abnormal NEGATIVE [facility] Comment on above: Performed By: #### P REGU, ERUR, UMICRO #### [facility] [address] [place] [address] [address] Gregoria Messer Nitrite Ql (U) Negative Normal NEGATIVE [facility] Comment on above: Performed By: #### P REGU, ERUR, UMICRO #### [facility] [address] [place] [address] Dr. Gregoria Messer pH (U) 7.5 [pH] Normal 5-9 [facility] Comment on above: Performed By: #### P REGU, ERUR, UMICRO #### [facility] [address] [place] [address] [address] Gregoria Messer Protein (U) [Mass/Vol] 30 mg/dL Abnormal NEGATIVE/ TRACE [facility] Comment on above: Performed By: #### P REGU, ERUR, UMICRO #### [facility] [address] [place] [address] Dr. Gregoria Messer SPEC GRAVITY 1.010 Normal 1.005-<=1.02 5 [facility] Comment on above: Performed By: #### P REGU, ERUR, UMICRO #### [facility] [address] [place] [address] [address] Gregoria Messer UR MICRO IND INDICATED Normal [facility] Comment on above: Performed By: #### P REGU, ERUR, UMICRO #### [facility] [address] [place] [address] Dr. Gregoria Messer Urobilinogen Qn (U) 0.2 {Catalino'U}/dL Normal 0.2 - 1. 0 [facility] Comment on above: Performed By: #### P REGU, ERUR, UMICRO #### [facility] [address] [address] [address] Gregoria Messer URon 04-28-2022 , QUAL Negative Normal NEGATIVE [facility] Comment on above: Performed By: #### P REGU, ERUR, UMICRO #### [facility] [address] [place] [address] [address] Gregoria Messer PROF 14(COMP METB)on 022 Albumin [Mass/Vol] 3.6 g/dL Normal 3.4-5.0 [facility] Comment on above: Performed By: #### C MP #### [facility] [address] [place] [address] Dr. Gregoria Messer Albumin/Globulin [Mass ratio] 0.9 {ratio} Normal [facility] Comment on above: Performed By: #### C MP #### [facility] [address] [place] [address] Dr. Gregoria Messer ALP [Catalytic activity/Vol] 101 U/L Normal 46-116 [facility] Comment on above: Performed By: #### C MP #### [facility] [address] [place] [address] Dr. Gregoria Messer ALT [Catalytic activity/Vol] 48 U/L Normal 14-59 [facility] Comment on above: Performed By: #### C MP #### [facility] [address] [place] [address] Dr. Gregoria Messer Anion gap [Moles/Vol] 14.5 mmol/L Normal [facility] Comment on above: Performed By: #### C MP #### [facility] [address] [place] [address] [address] Gregoria Messer AST [Catalytic activity/Vol] 26 U/L Normal 15-37 [facility] Comment on above: Performed By: #### C MP #### [facility] [address] [place] [address] Dr. Gregoria Messer Bilirubin [Mass/Vol] 0.9 mg/dL Normal 0.2-1.0 [facility] Comment on above: Performed By: #### C MP #### [facility] [address] [place] [address] [address] Gregoria Messer Calcium [Mass/Vol] 8.4 mg/dL Critically low 8.5-10.1 [facility] Comment on above: Performed By: #### C MP #### [facility] [address] [place] [address] [address] Gregoria Messer Chloride [Moles/Vol] 98 mmol/L Normal 98-107 [facility] Comment on above: Performed By: #### C MP #### [facility] [address] [place] [address] [address] Gregoria Messer CO2 [Moles/Vol] 25.9 mmol/L Normal 21.0-32.0 [facility] Comment on above: Performed By: #### C MP #### [facility] [address] [place] [address] [address] Gregoria Messer Creatinine [Mass/Vol] 0.94 mg/dL Normal 0.55-1.02 [facility] Comment on above: Performed By: #### C MP #### [facility] [address] [place] [address] [address] Gregoria Messer EGFR-AF VIETNAMESE >60 Normal >=60 [facility] Comment on above: Performed By: #### C MP #### [facility] [address] [place] [address] Dr. Gregoria Messer EGFR-NON AF VIET[place]ESE >60 Normal >=60 [facility] Comment on above: Performed By: #### C MP #### [facility] [address] [place] [address] Dr. Gregoria Messer Globulin (S) [Mass/Vol] 4.1 g/dL Normal [facility] Comment on above: Performed By: #### C MP #### [facility] [address] [place] [address] Dr. Gregoria Messer Glucose [Mass/Vol] 113 mg/dL Critically high 74-106 T [facility] Comment on above: Performed By: #### C MP #### [facility] [address] [place] [address] Dr. Gregoria Messer Potassium [Moles/Vol] 3.4 mmol/L Critically low 3.5-5.1 [facility] Comment on above: Performed By: #### C MP #### [facility] [address] [place] [address] [address] Gregoria Messer Protein [Mass/Vol] 7.7 g/dL Normal 6.4-8.2 [facility] Comment on above: Performed By: #### C MP #### [facility] [address] [place] [address] Dr. Gregoria Messer Sodium [Moles/Vol] 135 mmol/L Critically low 136-145 Th [facility] Comment on above: Performed By: #### C MP #### [facility] [address] [place] [address] Dr. Gregoria Messer Urea nitrogen [Mass/Vol] 6.0 mg/dL Critically low 7.0-18.0 [facility] Comment on above: Performed By: #### C MP #### [facility] [address] [place] [address] Dr. Gregoria Messer Urea nitrogen/Creatinine [Mass ratio] 6.4 mg/mg Normal [facility] Comment on above: Performed By: #### C MP #### [facility] [address] [place] [address] Dr. Gregoria Messer URINE MICROSCOPIC ONLYon BACTERIA SMALL Abnormal NONE SEEN [facility] Comment on above: Performed By: #### P REGU ERUR, UMICRO #### [facility] [address] [place] [address] Dr. Gregoria Messer Bacteria identified Cx Nom (U) INDICATED Normal [facility] Comment on above: Performed By: #### P REGU ERUR, UMICRO #### [facility] [address] [place] [address] Dr. Gregoria Messer CAST NONE SEEN Normal NONE SEEN [facility] Comment on above: Performed By: #### P REGU ERUR, UMICRO #### [facility] [address] [place] [address] Dr. Gregoria Messer Crystals LM Nom (Urine sed) NONE SEEN Normal NONE SEEN [facility] Comment on above: Performed By: #### P REGU, ERUR, UMICRO #### [facility] [address] [place] [address] [address] Gregoria Messer Epithelial cells LM Ql (Urine sed) MODERATE Abnormal NONE SEEN /RARE [facility] Comment on above: Performed By: #### P REGU, ERUR, UMICRO #### [facility] [address] [place] [address] [address] Gregoria Messer MUCOUS TRACE Abnormal NONE SEEN [facility] Comment on above: Performed By: #### P REGU, ERUR, UMICRO #### [facility] [address] [place] [address] Dr. Gregoria Messer RBC 2-5 Abnormal 0-2 [facility] Comment on above: Performed By: #### P REGU, ERUR, UMICRO #### [facility] [address] [address] [address] Gregoria Messer WBC 10-20 Abnormal NONE SEEN [facility] Comment on above: Performed By: #### P REGU, ERUR, UMICRO #### [facility] [address] [place] [address] Dr. Gregoria Messer COVID Quick Testingon 2021 Result Positive [employer] Other Vital Signs Date Time Vital Sign Value Performing Clinician Ar gomez 08-04-2024 15:17-0400 Body mass index (BMI) [Ratio] 28.84 kg/m2 Hortencia LAMBERT Work Phone: [facility] 08-04-2024 [id number] Body weight 76.2 kg Hortencia LAMBERT Work Phone: [facility] 08-04-2024 15:17-0400 Diastolic blood pressure 70 mm[Hg] Hortencia LAMBERT Work Phone: [facility] 08-04-2024 15:17-0400 Systolic blood pressure 120 mm[Hg] Hortencia LAMBERT Work Phone: [facility] 05-01-2022 15:18-0500 Blood Pressure Location Diane Lue [facility] 05-01-2022 15:18-0500 Diastolic blood pressure 91 mm[Hg] Diane Lue [facility] 05-01-2022 15:18-0500 Heart rate 81 /min Diane Lue [facility] 05-01-2022 15:18-0500 Systolic blood pressure 117 mm[Hg] Diane Lue [facility] [facility] Encounters Encounter Date Encounter Type Care Provider Facility Start: 08-04-2024 End: 08-04-2024 Patient encounter procedure Hortencia LAMBERT Work Phone: [facility] Work Phone: Start: 08-04-2024 End: 08-04-2024 Periodic preventive med est patient 18-39 yrs Hortencia LAMBERT Work Phone: [facility] Comment on above: Well woman exam with routine gynecological exam Start: 08-04-2024 End: 08-04-2024 Bamboo flowsheet Hortencia LAMBERT Work Phone: [facility] Start: 08-04-2024 End: 08-04-2024 Bamboo flowsheet Hortencia LAMBERT Work Phone: [facility] Start: 07-27-2024 End: 07-27-2024 ambulatory Caruso Talal Sarmini Facility:[id number] Start: 07-21-2024 ambulatory Caruso Sarmini Facili ty:[facility] Start: 07-15-2024 End: 07-15-2024 ambulatory Caruso Talal Sarmini Facility:[facility] Start: 07-16-2023 End: 07-16-2023 ambulatory HORTENCIA TRAYLOR Not Available Start: 08-26-2022 End: 08-26-2022 ambulatory Sandy Welch Facility:[facility] Start: 08-26-2022 End: 08-26-2022 ambulatory DO Clark Szymanski III Work Phone: [facility] Work Phone: Start: 08-26-2022 End: 08-26-2022 Departed Referred DO lCark Szymanski III Work Phone: [facility] [address] Work Phone: Start: 06-18-2022 End: 06-18-[address] ROSE PRADHAN . Facility: Start: 05-23-2022 Encounter for preprocedural cardiovascular examination DIANE M LUE . [facility] Start: 05-23-2022 Encounter for preprocedural laboratory examination DIANE M LUE . [facility] Start: 05-22-2022 ambulatory Diane M. Lue Facility:C [id number] Start: 05-18-2022 ambulatory DIANE M LUE . Facility: Start: 05-16-2022 End: 05-17-2022 ambulatory DIANE M LUE . Facility: Start: 05-16-2022 End: 05-17-2022 Encounter for preprocedural cardiovascular examination DIANE M LUE . Facility: Start: 05-01-2022 End: 05-02-2022 ambulatory Diane M. Lue Facility:[facility] Start: 05-01-2022 End: 05-01-2022 Patient encounter procedure Diane M. Lue [facility] Start: 05-01-2022 ambulatory Diane Lue Facility:[facility] Start: 04-28-2022 End: 04-28-[address] RIOS LISTED REQUEST Facility: Start: 05-08-2021 End: 05-08-2021 ambulatory Sandy Pathak Other [facility] Other Start: 05-08-2021 Nursing evaluation o f patient and report Sandy Pathak [facility] Procedures Date Procedure Procedure Detail Performing Clinician Start: 08-04-2024 End: 08-04-2024 Urnls dip stick/tablet rgnt non-auto w/o micrscp Hortencia LAMBERT Work Phone: Start: 07-16-2023 Microscopic observat ion [Identifier] in Cervix by Cyto stain Hortencia LAMBERT Work Phone: Ligation of fallopian tube Alexandrea Martinez Plan of Treatment Date Care Activity Detail Author Start: 07-15-2028 Screening for malign ant neoplasm of cervix [facility] Start: 08-08-2025 End: 08-08-2025 Patient encounter procedure 08/08/2025 3:00 PM EDT Office Visit [facility] [address] [address] Hortencia Traylor PA [address] [place] [address] [facility] Start: 01-03-2025 Influenza vaccination Influenz a Vaccine (Season Ended) [facility] Start: 08-09-2024 ambulatory Ambulatory Facility:[facility] Cytology Cervical or vaginal smear or scraping study Pap Smear Pathology and Cytology Routine Well woman exam with routine gynecological exam Ordered: 08/04/2024 [facility] Work Phone: Comment on above: Ordered: 08/04/2024 Human papilloma viru s DNA [Presence] in Unspecified specimen by Probe with amplification HPV DNA probe, amplified Microbiology Routine Well woman exam with routine gynecological exam Ordered: 08/04/2024 [facility] Comment on above: Ordered: 08/04/2024 Immunizations Immunization Date Immunization Notes Care Provider Fa cility 01-05-2021 SARS-CoV-2 (COVID-19 ) mRNA BNT-162b2 vax Diane Juan [facility] Comment on above: Result Comment: 2021: TPVAL 12-14-2020 SARS-CoV-2 (COVID-19 ) mRNA BNT-162b2 gia Martinez [facility] Comment on above: Result Comment: 2021: TPVAL Payers Date Payer Category Payer Private Health Insurance [id number] 2023 Private Health Insurance [id number] 2023 Private Health Insurance LIVE colon [id number] 1987 Unknown [id number] 1987 Unknown [id number] .[id number] 1987 Unknown [id number] .[id number] 1987 Unknown [id number] [id number] .[id number] 1987 Unknown [id number] [id number] .[id number] 1987 Unknown [id number] [id number] .[id number] 1987 Unknown [id number] [id number] .[id number] 1987 Unknown [id number] [id number] .2.727 1987 Unknown [id number] [id number] .2.727 1987 Unknown [id number] .[id number] 1959 [facility] [id number] Self-pay Self Pay [id number] Social History Date Type Detail Facility Start: 08-02-2023 End: 08-04-2024 Sex Assigned At [facility] Start: 05-01-2022 End: 08-02-2023 Tobacco smoking status Never smoked tobacco (finding) [facility] Tobacco smoking status Never [facility] Start: 1985 Sex Assigned At Female F [facility] Start: 08-02-2023 End: 08-04-2024 History of Social function [facility] Start: 1985 Sex assigned at Not on file [facility] Functional Status Date Assessment Result Facility 05-01-2022 Functional Status N/A [facility] History of Present illness Narrative 08-04-2024 PETRA Espinosa - 08/04/2024 3:00 PM EDT Note Date & Type Note Facility 08-04-2024 History of Presen t illness Narrative Reason for Appointment: Patient ID: Nidia Ordoñez is a 38 y.o. female who presents for Well Women Visit Patient presents today for Annual Exam. MEDICATIONS Current Outpatient Medications Medication Instructions lisinopril 10 mg, Oral, Daily ALLERGIES No Known Allergies PROBLEMS Active Ambulatory Problems Diagnosis Date Noted No Active Ambulatory Problems Resolved Ambulatory Problems Diagnosis Date Noted No Resolved Ambulatory Problems Past Medical History: Diagnosis Date Diverticulitis High blood pressure (CMS/HCC) History of kidney stones HISTORY PAST MEDICAL HISTORY SOCIAL HISTORY Past Medical History: Diagnosis Date Diverticulitis High blood pressure (CMS/HCC) History of kidney stones Social History Tobacco Use Smoking status: Never Smokeless tobacco: Not on file Substance Use Topics Alcohol use: Not on file Drug use: Not on file FAMILY HISTORY No family history on file. SURGICAL HISTORY Past Surgical History: Procedure Laterality Date COLONOSCOPY TUBAL LIGATION REVIEW OF SYSTEMS Review of Systems: Review of Systems Constitutional: Negative. HENT: Negative. Eyes: Negative. Respiratory: Negative. Cardiovascular: Negative. Gastrointestinal: Negative. Genitourinary: Negative. Musculoskeletal: Negative. Skin: Negative. Neurological: Negative. All other systems reviewed and are negative. Hematological: Negative. Endocrine: Negative. Allergic/Immunologic: Negative. OBJECTIVE Objective: Physical Exam Constitutional: Appearance: Normal appearance. Genitourinary: Right Adnexa: not tender and no mass present. Left Adnexa: not tender and no mass present. No cervical discharge. Breasts: Breasts are soft. Right: Normal. Left: Normal. HENT: Head: Normocephalic. Nose: Nose normal. Mouth/Throat: Mouth: Mucous membranes are moist. Cardiovascular: Rate and Rhythm: Normal rate. Pulmonary: Effort: Pulmonary effort is normal. Abdominal: General: Bowel sounds are normal. Palpations: Abdomen is soft. Musculoskeletal: General: Normal range of motion. Cervical back: Normal range of motion. Neurological: General: No focal deficit present. Mental Status: She is alert. Skin: General: Skin is warm and dry. Psychiatric: Mood and Affect: Mood normal. Vitals and nursing note reviewed. Exam conducted with a beater head present. Vitals: Estimated body mass index is 28.84 kg/m as calculated from the following: Height as of 07/16/23: 5' 4 . Weight as of this encounter: 168 lb. BP: 120/70 No LMP recorded (within weeks). ASSESSMENT & PLAN ICD-10-CM 1. Well woman exam with routine gynecological exam Z01.419 Pap Smear HPV DNA probe, amplified POCT , urine manually resulted POCT urinalysis dipstick manually resulted Annual Exam: Patient presents today for an annual exam. Patient states she is doing well and has no complaints. Pap was obtained without difficulty. Orders Placed This Encounter Procedures HPV DNA probe, amplified POCT , urine manually resulted POCT urinalysis dipstick manually resulted Follow Up: Patient is to return in one year for annual unless needed otherwise. Documented by PETRA Espinosa on behalf of: PETRA Espinosa documented in this encounter [facility] Discharge instructions 05-01-2022 Note Date & Type Note Facility 05-01-2022 Hospital Discharg e instructions Patient Education 05/01/2022 15:48:55 Kidney Stones, Cyhi-du-Mdct Kidney Stones Kidney stones are rock-like masses that form inside of the kidneys. Kidneys are organs that make pee (urine). A kidney stone may move into other parts of the urinary tract, including: The tubes that connect the kidneys to the bladder (ureters). The bladder. The tube that carries urine out of the body (urethra). Kidney stones can cause very bad pain and can block the flow of pee. The stone usually leaves your body (passes) through your pee. You may need to have a doctor take out the stone. What are the causes? Kidney stones may be caused by: A condition in which certain glands make too much parathyroid hormone (primary hyperparathyroidism). A buildup of a type of crystals in the bladder made of a chemical called uric acid. The body makes uric acid when you eat certain foods. Narrowing (stricture) of one or both of the ureters. A kidney blockage that you were born with. Past surgery on the kidney or the ureters, such as gastric bypass surgery. What increases the risk? You are more likely to develop this condition if: You have had a kidney stone in the past. You have a family history of kidney stones. You do not drink enough water. You eat a diet that is high in protein, salt (sodium), or sugar. You are overweight or very overweight (obese). What are the signs or symptoms? Symptoms of a kidney stone may include: Pain in the side of the belly, right below the ribs (flank pain). Pain usually spreads (radiates) to the groin. Needing to pee often or right away (urgently). Pain when going pee (urinating). Blood in your pee (hematuria). Feeling like you may vomit (nauseous). Vomiting. Fever and chills. How is this treated? Treatment depends on the size, location, and makeup of the kidney stones. The stones will often pass out of the body through peeing. You may need to: Drink more fluid to help pass the stone. In some cases, you may be given fluids through an IV tube put into one of your veins at the hospital. Take medicine for pain. Make changes in your diet to help keep kidney stones from coming back. Sometimes, medical procedures are needed to remove a kidney stone. This may involve: A procedure to break up kidney stones using a beam of light (laser) or shock waves. Surgery to remove the kidney stones. Follow these instructions at home: Medicines Take syrh-djc-faozumk and prescription medicines only as told by your doctor. Ask your doctor if the medicine prescribed to you requires you to avoid driving or using heavy machinery. Eating and drinking Drink enough fluid to keep your pee pale yellow. You may be told to drink at least 8 10 glasses of water each day. This will help you pass the stone. If told by your doctor, change your diet. This may include: ?Limiting how much salt you eat. ?Eating more fruits and vegetables. ?Limiting how much meat, poultry, fish, and eggs you eat. Follow instructions from your doctor about eating or drinking restrictions. General instructions Collect pee samples as told by your doctor. You may need to collect a pee sample: ?24 hours after a stone comes out. ?8 12 weeks after a stone comes out, and every 6 12 months after that. Strain your pee every time you pee (urinate), for as long as told. Use the strainer that your doctor recommends. Do not throw out the stone. Keep it so that it can be tested by your doctor. Keep all follow-up visits as told by your doctor. This is important. You may need follow-up tests. How is this prevented? To prevent another kidney stone: Drink enough fluid to keep your pee pale yellow. This is the best way to prevent kidney stones. Eat healthy foods. Avoid certain foods as told by your doctor. You may be told to eat less protein. Stay at a healthy weight. Where to find more information National Kidney Foundation (NKF): www.kidney.org Urology Care Foundation (UCF): www.urologyhealth.org Contact a doctor if: You have pain that gets worse or does not get better with medicine. Get help right away if: You have a fever or chills. You get very bad pain. You get new pain in your belly (abdomen). You pass out (faint). You cannot pee. Summary Kidney stones are rock-like masses that form inside of the kidneys. Kidney stones can cause very bad pain and can block the flow of pee. The stones will often pass out of the body through peeing. Drink enough fluid to keep your pee pale yellow. This information is not intended to replace advice given to you by your health care provider. Make sure you discuss any questions you have with your health care provider. Document Released: 10/07/2008 Document Revised: 09/07/2019 Document Reviewed: 09/07/2019 [employer] Patient Education 2019 [email or web address] Follow Up Care 05/01/2022 12:03:21 With:Juan ARANGO, Diane De La Cruz URL, [facility] Address: [address], [place] [address] [phone] When: Unknown [facility] Evaluation note 05-08-2021 Note Date & Type Note Facility 05-08-2021 Evaluation note Encounter Date Diagnosis Assessment Notes May, Contact with and (suspected) exposure to other viral communicable diseases (ICD-10 - Z20.828) May, Other Additional time spent conducting pre-visit phone call, screening for symptoms, instructions on social distancing, application and removal of PPE, and cleaning of examination room, equipment and supplies was preformed. Patient education given for testing methodology and results. Patient care instructions given in writting by [facility] document. [facility] Other Evaluation + Plan note Note Date & Type Note Facility Evaluation + Plan note [facility] Evaluation note Note Date & Type Note Facility Evaluation note No assessment information availa [facility] Work Phone: Evaluation note Note Date & Type Note Facility Evaluation note Diagnosis Well woman exam with routine gynecological exam Routine gynecological examination documented in this encounter [facility] History general Narrative - Reported Note Date & Type Note Facility History general Narrative - Reported Type Surgical History tubal ligation Surgical History wisdom teeth [facility] Other Hospital course Narrative Note Date & Type Note Facility Hospital course Narrative No data available for this section [facility] Progress note Note Date & Type Note Facility Progress note No data available for this section [facility] [place] Reason for Referral Referred by: Juan ARANGO, Diane De La Cruz Summary Purpose Family History No Family History Records FoundNo Family History Records FoundNo Family History Records FoundNo Family History Records FoundNo Family History Records Found Advance Directives Advance Directive Response Recorded Date/ Time Advance Directives No October 07 12:04pm Chief Complaint and Reason for Visit Chief Complaint XRAY Additional Source Comments REASON FOR VISIT (unrecogniz ed section and content) Reason Comments Well Women Visit Patient Care team informatio n (unrecognized section and content) Team Status: Active Member Role Status Dates Clark Szymanski III , DO Primary Care Provider Active Team Status: Inactive Member Role Status Dates Clark Szymanski III , DO Primary Care Provider Active Sandy Welch APRN Attending Provider Active INFORMATION SOURCE (unrecogn ized section and content) DATE CREATED AUTHOR 05/28/2022 [facility] DATE CREATED AUTHOR AUTHOR'S ORGANIZ ATION 06/27/[address] [facility] DATE CREATED AUTHOR AUTHOR'S ORGANIZ ATION 08/27/2022 [facility] DATE CREATED AUTHOR AUTHOR'S ORGANIZ ATION 07/18/2023 [facility] DATE CREATED AUTHOR AUTHOR'S ORGANIZ ATION 07/30/2024 [facility] Goals (unrecognized section and content) Goals may be documented in a n alternate section FOR RECORDS PERTAINING TO PATIENTS WHO ARE OR HAVE BEEN ENROLLED IN A CHEMICAL DEPENDENCY/SUBSTANCEABUSE PROGRAM, SOME INFORMATION MAY BE OMITTED. This clinical summary was aggregated from multiple sources. Caution should be exercised in using it in the provision of clinical care. This summary normalizes information from multiple sources, and as a consequence, information in this document may materially change the coding, format and clinical context of patient data. In addition, data may be omitted in some cases. CLINICAL DECISIONS SHOULD BE BASED ON THE PRIMARY CLINICAL RECORDS. [facility]. provides no warranty or guarantee of the accuracy or completeness of information in this document.
== END 2024-08-04 18:09 | disposition home or self-care (01) ==
LOC: LAB 18:08
PROVIDERS: Visit Provider Physician Assistant
DX: Z01.419 Encounter for gynecological examination (general) (routine) without abnormal findings (principal)
CPT/HCPCS: 87624; 88175